=== PATIENT | female | born 1950 | race Caucasian/White ===

== ENCOUNTER 2016-07-22 13:05 | Observation (INO) | payer OTHER ==
[~2016-07-22] VITALS: Ht 160 cm; Wt 121.6 kg
[~2016-07-22 13:05] MED LIST: ASPI-232 PO; ATEN50TA PO; CALC600T9 PO; CHOL1CAP30 PO; MULT-506 PO; OMEP20CA59 PO; OXYBUTYNIN PO; OXYC1TAB3 PO
[2016-07-22] MEDS ORDERED: CLB/200 PO (13:37)
[2016-07-22 14:07] LABS: HEMATOCRIT 38.8 % (37-47); MEAN CORPUSCULAR HEMOGLOBIN 29.3 pg (25-34); MEAN CORPUSCULAR HGB CONC 33.2 g/dl (32-36); MEAN PLATELET VOLUME 10.8 fL (7.4-10.4); PLATELET COUNT 175 K/uL (130-400); RED BLOOD COUNT 4.41 M/uL (4.2-5.4); WHITE BLOOD COUNT 7.44 K/uL (4.8-10.8)
--- NOTE | 2016-07-22 14:09 | DIAGNOSTIC IMAGING REPORT ---
CHEST ONE VIEW PORTABLE CLINICAL HISTORY: Atypical chest pain and shortness of breath COMPARISON STUDY: 01/13/2016 FINDINGS: The heart is the upper limits of normal in size. There is no failure. There is no focal pulmonary consolidation. There are no pleural effusions.[ IMPRESSION: No active disease in the chest. Electronically signed by: Trip Dangelo M.D. 07/22/2016 2:08 PM Dictated Date/Time: 07/22/2016 2:07 PM
[2016-07-22 14:16] LABS: PROTHROMBIN TIME (PATIENT) 10.8 SECONDS (9.0-12.0)
[2016-07-22 14:24] LABS: BUN/CREATININE RATIO 16.3 (10-20); CREATININE 0.91 mg/dl (0.60-1.20); POTASSIUM 4.3 mmol/L (3.5-5.1)
[2016-07-22 14:29] LABS: ALB/GLOB RATIO 1.1 (0.9-2); CKMB/CK RATIO 0.8 (0-3.0)
--- NOTE | 2016-07-22 15:01 | EMERGENCY ROOM VISIT NOTE ---
History First contact with patient: 13:48 Chief Complaint: CARDIAC ASSESSMENT Stated Complaint: CHEST PAIN Nursing Triage Summary: PT HERE WITH EPISODES OF CHEST PAINS AT NIGHT RECENTLY. INCREASED SOB WITH EXERTION. PT STATES HAS HAD A 12 LB WT GAIN RECENTLY. PT HAS VERY SLIGHT PEDAL EDEMA. NO HX OF CARDIAC OR CHF. PT STATES HAS HAD DRY COUGH. GIVEN 2 NTG IN ROUTE WITH RELIEF OF PAIN FROM 5/10 TO 6/10. History of Present Illness The patient is a 66 year old female who presents to the Emergency Room via ambulance from her primary care provider's office for evaluation of shortness of breath and intermittent chest pain. The patient states that she has had a cough and shortness of breath for the past 2 weeks. She states that her symptoms are worse at night. She also has associated chest pain at night which she states feels like a heaviness. She reports that the shortness of breath has been worse with exertion. She also reports a 12 pound weight gain over the past few weeks. The patient denies any history of COPD or heart failure. She does report a history of hypertension. She states that she has a history of a "slight heart attack" but was never seen by a physician for this because she did not have health insurance. She denies any symptoms at this time. She was seen at Dr. Casiano's office and sent here for further evaluation. The patient does report a recent GI illness but denies any other recent illnesses. Review of Systems A complete 10 point review of systems was reviewed with the patient with pertinent positives and negatives as per history of present illness. All else were negative. Past Medical/Surgical History Medical Problems: (1) Chest pain (2) History of coronary artery disease (3) Hypertension (4) Pre-diabetes (5) Shortness of breath on exertion Social History Smoking Status: Never Smoker Current/Historical Medications Scheduled Aspirin (Aspir-81), 81 MG PO QAM Atenolol (Tenormin), 50 MG PO QAM Calcium Carbonate-Vitamin D (Calcium + D), 600 MG PO BID Celecoxib (CeleBREX), 200 MG PO BID Cholecalciferol (Vitamin D3), 400 PO QAM Guaifenesin Ext Rel (Mucinex Ext Rel), 600 MG PO Q12 Multivitamin (Multivitamin), 1 TAB PO QAM Omeprazole (Prilosec), 20 MG PO QAM Scheduled PRN Oxycodone Ir (Roxicodone Ir), 5-10 MG PO Q4H PRN Allergies Coded Allergies: No Known Allergies (Unverified , 11/29/12) PER Beulah GALINDO H&P 2013 Physical Exam Vital Signs Date Time Temp Pulse Resp B/P Pulse Ox O2 Delivery O2 Flow Rate FiO2 07/22/16 16:05 67 20 07/22/16 15:35 58 17 94 07/22/16 15:05 58 16 94 07/22/16 15:02 169/86 07/22/16 14:38 62 20 169/86 94 Room Air 07/22/16 14:35 60 16 93 07/22/16 14:30 169/86 07/22/16 14:05 62 13 92 07/22/16 13:35 59 12 91 07/22/16 13:33 58 07/22/16 13:31 94 Room Air 07/22/16 13:31 94 Room Air 07/22/16 13:20 95 Room Air 07/22/16 13:17 200/93 07/22/16 13:14 36.4 67 22 200/93 95 Room Air Physical Exam VITALS: Vitals are noted on the nurse's note and reviewed by myself. Vital signs stable. GENERAL: This is a 66-year-old female, in no acute distress, nondiaphoretic, well-developed well-nourished. SKIN: Capillary reflex less than 2 seconds. HEENT: Normocephalic. PERRLA. EOMI. Nares patent. Mucous membranes moist. Neck is supple without nuchal rigidity. HEART: Regular rate and rhythm without murmurs gallops or rubs. LUNGS: Clear to auscultation bilaterally without wheezes, rales or rhonchi. No retractions or accessory muscle use. EXTREMITIES: No pedal edema. NEURO: Patient was alert and oriented to person place and time. Medical Decision & Procedures ER Provider Diagnostic Interpretation: CHEST ONE VIEW PORTABLE CLINICAL HISTORY: Atypical chest pain and shortness of breath COMPARISON STUDY: 01/13/2016 FINDINGS: The heart is the upper limits of normal in size. There is no failure. There is no focal pulmonary consolidation. There are no pleural effusions.[ IMPRESSION: No active disease in the chest. Laboratory Results Test 07/22/16 13:55 07/22/16 13:59 Prothrombin Time 10.8 SECONDS (9.0-12.0) Prothromb Time International Ratio 1.0 (0.9-1.1) Activated Partial Thromboplast Time 26.9 SECONDS (21.0-31.0) Partial Thromboplastin Ratio 1.0 Total Bilirubin 0.9 mg/dl (0.2-1) Aspartate Amino Transf (AST/SGOT) 24 U/L (15-37) Alanine Aminotransferase (ALT/SGPT) 37 U/L (12-78) Alkaline Phosphatase 73 U/L (45-117) Pro-B-Type Natriuretic Peptide 393 pg/ml (0-900) Total Protein 7.5 gm/dl (6.4-8.2) Albumin 3.9 gm/dl (3.4-5.0) Globulin 3.6 gm/dl (2.5-4.0) Albumin/Globulin Ratio 1.1 (0.9-2) Bedside Troponin I 0.000 ng/ml (0-0.045) ECG Indication: chest pain Rate (beats per minute): 65 Rhythm: normal sinus Findings: no acute ischemic change, no ectopy Comparison ECG Date: no prior available ED Course The patient was evaluated as above. Labs were drawn and IV access was obtained. Patient was reevaluated and plan was discussed. The patient agrees to admission. Case was discussed with the [facility] hospitalist, Dr. Squires. They agreed to evaluate the patient for admission. Medical Decision Differential diagnosis includes acute coronary syndrome, pulmonary embolism, pneumothorax, pericarditis, myocarditis, endocarditis, anxiety, musculoskeletal pain, GERD, costochondritis, pneumonia, among others. The patient is a 66-year-old female who presents today complaining of intermittent chest pain, cough and shortness of breath. Labs revealed no leukocytosis, anemia or concerning electrolyte abnormalities. Glucose is slightly elevated. Troponin was not elevated. EKG showed a normal sinus rhythm without ischemic changes. The patient does report a previous cardiac event, but I am doubtful that she truly had an MRI as there is no evidence of prior ischemia on her EKG. BNP was not elevated. Chest x-ray showed no evidence of failure or other acute findings. The patient does have a history concerning for chest pain and I do feel that she will benefit from admission for further cardiac testing, especially as she has not had a stress test for 8 years. She is certainly high risk of an obese patient with a history of hypertension and a very strong family history of cardiac disease. The patient was agreeable to this. The [facility], who agreed to evaluate the patient for admission. The patient was independently evaluated by Dr. Jean-Baptiste, ED attending physician, who agreed with my assessment and treatment plan. Impression Primary Impression: Intermittent chest pain Departure Information Prescriptions Guaifenesin Ext Rel (MUCINEX EXT REL) 600 Mg Tabcr 600 MG PO Q12 for 10 Days, #20 TAB Prov: Campos Varela MD 07/23/16 Referrals Asad Casiano M.D. (PCP) Patient Instructions My [facility]
[2016-07-22] MEDS ORDERED: NITROGLYCERIN 0.4 MG SL PER TAB CHARGE SL PRN (16:15)
[2016-07-22] MEDS ORDERED: ACETAMINOPHEN 325 MG TAB PO PRN (16:15)
[2016-07-22] MEDS ORDERED: ALUMINUM/MAGNESIUM/SIMETH (MAALOX MAX) 30 ML UDC PO PRN (16:15)
[2016-07-22] MEDS ORDERED: ONDANSETRON INJ 2 MG/ML 2 ML VIAL IV PRN (16:15)
[2016-07-22] MEDS ORDERED: POLYETHYLENE (MIRALAX) 17 GM PACK PO PRN (16:15)
[2016-07-22] MEDS ORDERED: MAGNESIUM HYDROXIDE SUSP 30 ML UDC PO PRN (16:15)
[2016-07-22] MEDS ORDERED: OXYCODONE HCL IR 5 MG TAB (IMMEDIATE RELEASE) PO PRN (16:30)
[2016-07-22] MEDS ORDERED: IV FLUIDS COMPLETED PRN (16:30)
--- NOTE | 2016-07-22 16:51 | History and Physical ---
History & Physical Date & Time of Service: July 22, 2016 at 16:25 Chief Complaint: Chest Pain Primary Care Physician: Asad Casiano M.D. History of Present Illness Source: patient Patient's a 66-year-old female who presents today with progressive dyspnea on exertion for the past 2 weeks. The past 2 weeks the patient states that she has had URI symptoms along with cough. Last week she had clear mucus coming up, but this is cleared up. She states that she does feel slightly wheezy. She does report that she has been getting dyspneic with exertion. She states that just walking to the bathroom makes her short of breath. She denies exertional chest pain. At nighttime during the past 2 weeks however she does wake up with fits of coughing, and as a result of the coughing, states that she feels a pressure-like pain in her chest. After she is finished coughing the pain subsides. This pain also does not radiate to the chart of the arms. When she is well, the patient does not get chest pain or dyspnea with exertion. Patient does note that 8 years ago she did have an episode where she became lightheaded and had an episode of syncope. Her friend checked her blood pressure and noted that her "bottomed out". The patient was sat upright and states that she regained consciousness, but notes that she chose not to go to the ED/hospital because she did not have insurance at the time. She was later worked up at [facility] in [place], and was told that she had "scarring on the heart". She has had stents placed or CABG. She did have an echocardiogram at that time but that is unavailable to her or us. She notes that this morning she was at her family physician's office. He auscultated her lungs are noted to her that he felt she had congestion at the bases and was given a call an ambulance for her. She states that when he mention this to her she got a sudden feeling of substernal chest pressure, that did not radiate to the jaw or to the arms. She did not describe described as pain. She did not have any palpitations, lightheadedness, dizziness. The patient denies any recent fevers chills or night sweats. Her appetite and intake have been at her baseline. The patient has not had any pleuritic chest pain. She's not had any calf swelling. She has not had any recent long-haul flights or travel. She has not had any recent surgery or periods of prolonged immobility. She does not have a history of deep vein thrombosis or pulmonary embolism. Medical history includes hypertension. She does not have a history of diabetes or hyper cholesterolemia. She states that she used to smoke very occasionally, at most one cigarette every 3 days and this was for a short period of time and, and has not smoked in many decades. She does note a significant family history. Her father had CHF. She has 3 brothers who had MIs at the ages of 47, 52, and 58, all of which due to the MA. She has a brother who had an MA at 58 and survived. She has a sister who had an MA in her 40s. At this time the patient states that she is completing the chest pain-free. She does not any palpitations, lightheadedness, dizziness, shortness of breath, orthopnea, or lower extremity edema. Past Medical/Surgical History Hypertension CAD, no details on nuclear testing and echocardiogram from 8 years ago Rheumatoid arthritis Spinal Stenosis Family History She does note a significant family history. Her father had CHF. She has 3 brothers who had MIs at the ages of 47, 52, and 58, all of which due to the MA. She has a brother who had an MA at 58 and survived. She has a sister who had an MA in her 40s Social History Smoking Status: Former Smoker Smokeless Tobacco Use: No Alcohol Use: none Drug Use: none Marital Status: Housing status: lives with family Occupational Status: retired Immunizations History of Influenza Vaccine: Yes Influenza Vaccine Date: Nov 30, 2012 History of Tetanus Vaccine?: Yes Tetanus Immunization Date: Nov 30, 2012 History of Pneumococcal: Yes Pneumococcal Date: Nov 30, 2012 History of Hepatitis B Vaccine: No Allergies Coded Allergies: No Known Allergies (Unverified , 11/29/12) PER Beulah GALINDO H&P 2013 Home Medications Scheduled Aspirin (Aspir-81), 81 MG PO QAM Atenolol (Tenormin), 50 MG PO QAM Calcium Carbonate-Vitamin D (Calcium + D), 600 MG PO BID Celecoxib (CeleBREX), 200 MG PO BID Cholecalciferol (Vitamin D3), 400 PO QAM Multivitamin (Multivitamin), 1 TAB PO QAM Omeprazole (Prilosec), 20 MG PO QAM Scheduled PRN Oxycodone Ir (Roxicodone Ir), 5-10 MG PO Q4H PRN Review of Systems A 10 point review of systems was negative unless stated above. Physical Exam Vital Signs Date Time Temp Pulse Resp B/P Pulse Ox O2 Delivery O2 Flow Rate FiO2 07/22/16 14:38 62 20 169/86 94 Room Air 07/22/16 13:33 58 07/22/16 13:31 94 Room Air 07/22/16 13:31 94 Room Air 07/22/16 13:20 95 Room Air 07/22/16 13:14 36.4 67 22 200/93 95 Room Air General Appearance: WD/WN, no apparent distress, + obese Head: normocephalic Eyes: normal inspection, EOMI ENT: hearing grossly normal, TMs normal Neck: supple, no adenopathy, no JVD Respiratory/Chest: lungs clear, + pertinent finding (mildly coarse at the bases ; no obvious crackles or wheezing) Cardiovascular: regular rate, rhythm, no gallop, no murmur Abdomen/GI: normal bowel sounds, non tender, soft Back: no CVA tenderness, no muscle spasm Extremities/Musculoskelatal: no calf tenderness, no pedal edema Neurologic/Psych: alert, normal mood/affect, oriented x 3 Skin: normal color, warm/dry, no rash Lymphatic: no adenopathy Diagnostics Laboratory Results Results Past 24 Hours Test 07/22/16 13:55 07/22/16 13:59 Range/Units White Blood Count 7.44 4.8-10.8 K/uL Red Blood Count 4.41 4.2-5.4 M/uL Hemoglobin 12.9 12.0-16.0 g/dL Hematocrit 38.8 37-47 % Mean Corpuscular Volume 88.0 80-100 fL Mean Corpuscular Hemoglobin 29.3 25-34 pg Mean Corpuscular Hemoglobin Concent 33.2 32-36 g/dl RDW Standard Deviation 43.4 36.4-46.3 fL RDW Coefficient of Variation 13.5 11.5-14.5 % Platelet Count 175 130-400 K/uL Mean Platelet Volume 10.8 7.4-10.4 fL Prothrombin Time 10.8 9.0-12.0 SECONDS Prothromb Time International Ratio 1.0 0.9-1.1 Activated Partial Thromboplast Time 26.9 21.0-31.0 SECONDS Partial Thromboplastin Ratio 1.0 Sodium Level 143 136-145 mmol/L Potassium Level 4.3 3.5-5.1 mmol/L Chloride Level 104 98-107 mmol/L Carbon Dioxide Level 33 21-32 mmol/L Anion Gap 6.0 3-11 mmol/L Blood Urea Nitrogen 15 7-18 mg/dl Creatinine 0.91 0.60-1.20 mg/dl Est Creatinine Clear Calc Drug Dose 79.2 ml/min Estimated GFR () 76.7 Estimated GFR (Non- 66.2 BUN/Creatinine Ratio 16.3 10-20 Random Glucose 119 70-99 mg/dl Calcium Level 9.0 8.5-10.1 mg/dl Total Bilirubin 0.9 0.2-1 mg/dl Aspartate Amino Transf (AST/SGOT) 24 15-37 U/L Alanine Aminotransferase (ALT/SGPT) 37 12-78 U/L Alkaline Phosphatase 73 45-117 U/L Total Creatine Kinase 202 26-192 U/L Creatine Kinase MB 1.6 0.5-3.6 ng/ml Creatine Kinase MB Ratio 0.8 0-3.0 Pro-B-Type Natriuretic Peptide 393 0-900 pg/ml Total Protein 7.5 6.4-8.2 gm/dl Albumin 3.9 3.4-5.0 gm/dl Globulin 3.6 2.5-4.0 gm/dl Albumin/Globulin Ratio 1.1 0.9-2 Bedside Troponin I 0.000 0-0.045 ng/ml Diagnostic Radiology CHEST ONE VIEW PORTABLE CLINICAL HISTORY: Atypical chest pain and shortness of breath COMPARISON STUDY: 01/13/2016 FINDINGS: The heart is the upper limits of normal in size. There is no failure. There is no focal pulmonary consolidation. There are no pleural effusions.[ IMPRESSION: No active disease in the chest. Electronically signed by: Trip Dangelo M.D. 07/22/2016 2:08 PM Dictated Date/Time: 07/22/2016 2:07 PM CXR normal EKG Normal sinus rhythm Normal ECG No previous ECGs available Impression Assessment and Plan 66-year-old female presenting with nocturnal cough chest pressure on a background of 2 weeks of exertional dyspnea. Based on the characteristics of her chest discomfort this does not seem like classic angina. However, he causes of her morbidities and age she would have an intermediate pretest probability for coronary artery disease. There is no confirmed diagnosis of MA but based on history it seems as though she may already have known coronary disease. However we do not have the records. At this time I suspect this is more likely URI/bronchitis, based on her URI symptoms for the past 1-2 weeks. However based on risk factors, she should be admitted for further workup. Our plan for her is as follows: Chest Pain - EKG in the emergency department did not show any acute ST or T-wave changes; no previous EKG for comparison - Troponin 1 negative; these will be trended every 6 hours 3 - Based on intermediate pretest probability the patient would benefit from having stress testing done. At this time I do not think that she would be able to tolerate a treadmill echo; she'll be ordered a dobutamine echo for tomorrow - Nitroglycerin for chest pain - EKG with chest pain and in the morning Exertional shortness of breath and Nocturnal cough Multiple differentials including URI/bronchitis pneumonia, DAVID, CHF - Suspect most likely URI/bronchitis - Chest x-ray grossly unremarkable for acute process - Mucinex 600 twice a day - Unlikely pneumonia; patient is not febrile, no loose leukocytosis, no hypoxia - Unlikely CHF: No clinical evidence of fluid overload, proBNP negative, No obvious congestion on chest x-ray. Follow daily I's and O's and daily weight. Echocardiogram with dobutamine - Patient is obese and at risk for DAVID; I will also add nocturnal pulse oximetry - Continue PPI for possible nocturnal reflux History of coronary artery disease - Continue ASA - Patient is not on a statin at this time though if she does have coronary disease she would benefit from starting a statin for plaque stabilization Hypertension - Continue atenolol - Will also add a when necessary labetalol Rheumatoid arthritis - Patient takes Enbrel at home, was due for dose today - We'll contact pharmacy to ensure she can get dose of Enbrel - Continue Celebrex and oxycodone for pain GERD - Patient on omeprazole at home; replace per pharmacy DVT prophylaxis - SCD - Lovenox 40 every morning Disposition - Telemetry for cardiac monitoring - Expect discharge home when ready; can order PT and OT as indicated Level of Care Med/Surg Resuscitation Status FULL RESUSCITATION VTE Prophylaxis VTE Risk Assessment Done? Y/N: Yes Risk Level: Moderate Given or contraindicated: Enoxaparin (Lovenox)SQ Reviewed: Pt Seen/Exam by Me History Pt is having some anxiety about being admitted, but no chest pain now. No SOB. Has been eating without issue. Tells me that she gained a large amount of weight when she was on prednisone for RA. She has not been able to lose it despite no longer being on prednisone. Agree with HPI/ROS as noted. General Appearance: no apparent distress, obese Respiratory: normal breath sounds, no respiratory distress Cardiovascular: normal peripheral pulses, regular rate, rhythm Gastrointestinal: non tender, soft Extremities: non-tender, no pedal edema Neurologic/Psychiatric: alert, normal mood/affect Skin Characteristics: normal color, warm/dry Assessment/Plan Agree with plan as outlined above CP r/o given pt has multiple risk factors Work up is neg thus far Possible URI
[2016-07-22] MEDS ORDERED: HydrALAZINE HCL 20 MG/ML VIAL IV. PRN (17:15)
--- NOTE | 2016-07-22 17:16 | EMERGENCY ROOM VISIT NOTE ---
ED Visit Note First contact with patient: 13:48 The patient was seen and examined with Nolvia Chauhan PA-C. I agree with the history, physical and findings. Please see the note for disposition and details.
[2016-07-22 17:28] VITALS: O2SAT 96
[2016-07-22 18:14] VITALS: BP 190/83; PULSE 69; TEMP 36.6; O2SAT 93
[2016-07-22 18:23] VITALS: Ht 160 cm; Wt 121.6 kg
[2016-07-22] MEDS ORDERED: PNEUMOCOCCAL ADMINISTRATION CHARGE ONE (19:00)
[2016-07-22] MEDS ORDERED: PNEUMOCOCCAL POLYSACCHARIDES 25 MCG/0.5 ML VIAL/SYR IM. ONE (19:00)
[2016-07-22 19:28] VITALS: BP 149/63; PULSE 70; TEMP 36.5; O2SAT 92
[2016-07-22] MEDS ORDERED: ENOXAPARIN 40 MG/0.4 ML SYR SC SCH (20:00)
[2016-07-22] MEDS: GUAIFENESIN 600 MG TABCR PO SCH (20:45)
[2016-07-22] MEDS: CALCIUM 600MG + VIT D 400 IU TAB PO SCH (20:45)
[2016-07-22] MEDS: CeleBREX 200 MG CAP PO SCH (20:46)
[2016-07-22 22:33] LABS: CKMB/CK RATIO 0.7 (0-3.0)
[2016-07-22 23:35] VITALS: BP 150/92; PULSE 61; TEMP 36.7; O2SAT 93
[2016-07-23 00:08] LABS: MAGNESIUM 1.9 mg/dl (1.8-2.4)
--- NOTE | 2016-07-23 00:46 | Progress Note ---
Progress Note Date of Service July 23, 2016. Progress Note multiple episodes of bradycardia and what looks like a dropped beat, asymptomatic and during sleep, increasing frequency throughout the night, atenolol held, transcut pacers placed on chest and atropine at bedside incase patient is hemodynamically unstable, [facility] consult
[2016-07-23 01:37] VITALS: BP 156/76; PULSE 64; TEMP 36.8; O2SAT 93
[2016-07-23] MEDS ORDERED: ASPIRIN 81 MG CHEW PO STA (03:54)
[2016-07-23 04:08] VITALS: BP 159/83; PULSE 68; TEMP 36.9; O2SAT 93
[2016-07-23 04:39] LABS: HEMATOCRIT 37.7 % (37-47); MEAN CELL VOLUME 87.3 fL (80-100); MEAN CORPUSCULAR HEMOGLOBIN 29.4 pg (25-34); MEAN CORPUSCULAR HGB CONC 33.7 g/dl (32-36); MEAN PLATELET VOLUME 10.4 fL (7.4-10.4); PLATELET COUNT 164 K/uL (130-400); RED BLOOD COUNT 4.32 M/uL (4.2-5.4); WHITE BLOOD COUNT 6.71 K/uL (4.8-10.8)
[2016-07-23 04:50] LABS: BLOOD UREA NITROGEN 15 mg/dl (7-18); BUN/CREATININE RATIO 16.2 (10-20); CALCIUM 9.1 mg/dl (8.5-10.1); CARBON DIOXIDE 33 mmol/L (21-32); CHLORIDE 104 mmol/L (98-107); CREATININE 0.91 mg/dl (0.60-1.20); GLUCOSE 137 mg/dl (70-99); SODIUM 142 mmol/L (136-145)
[2016-07-23 04:55] LABS: CHOLESTEROL 147 mg/dl (0-200); CHOLESTEROL/HDL RATIO 2.9; CKMB/CK RATIO 0.5 (0-3.0); HDL CHOLESTEROL 51 mg/dl; LDL CHOLESTEROL CALCULATED 66 mg/dl; TRIGLYCERIDES 148 mg/dl (0-150); VERY LOW DENSITY LIPOPROT CALC 30 mg/dl
[2016-07-23 06:39] LABS: ESTIMATED AVERAGE GLUCOSE 134 mg/dl; HA1C FLAG Normal (Normal)
[2016-07-23 07:15] VITALS: BP_SYST 156; BP_SYST 185; BP_DIAS 83; BP_DIAS 92; PULSE 63; TEMP 37.1; O2SAT 92
[2016-07-23] MEDS: GUAIFENESIN 600 MG TABCR PO SCH (07:54)
[2016-07-23] MEDS: CeleBREX 200 MG CAP PO SCH (07:54)
[2016-07-23] MEDS: CALCIUM 600MG + VIT D 400 IU TAB PO SCH (07:54)
[2016-07-23] MEDS ORDERED: ATROPINE SULFATE 0.1 MG/ML 5ML SYR ONE (08:34)
[2016-07-23] MEDS ORDERED: METOPROLOL TARTRATE 1 MG/ML VIAL ONE ×2 (08:34→10:01)
[2016-07-23] MEDS ORDERED: DOBUTamine HCL 12.5 MG/ML 20 ML VIAL ONE (08:34)
[2016-07-23] MEDS ORDERED: MULTIVITAMIN TAB PO SCH (09:00)
[2016-07-23] MEDS ORDERED: PANTOprazole SOD 40 MG TAB PO SCH (09:00)
[2016-07-23] MEDS ORDERED: ASPIRIN 81 MG ECTAB PO SCH (09:00)
[2016-07-23] MEDS ORDERED: CHOLECALCIFEROL 400 INTER.UNIT TAB PO SCH (09:00)
[2016-07-23] MEDS ORDERED: GFNSR600 PO (10:21)
--- NOTE | 2016-07-23 10:33 | Discharge Instructions ---
Discharge Instructions Date of Service July 23, 2016. Admission Reason for Admission: Chest Pain evaluation for myocardial infarction Discharge Discharge Diagnosis / Problem: Bronchitis Discharge Goals Goal(s): Decrease discomfort, Improve function, Diagnostic testing Activity Recommendations Activity Limitations: resume your previous activity Lifting Limitations: gradually increase as tolerated Exercise/Sports Limitations: gradually increase as tolerated May Resume Sexual Activity: when tolerated Shower/Bathe: no limitations Driving or Machine Use: no limitations . Instructions / Follow-Up Instructions / Follow-Up You came to the ED for evaluation for shortness breath during the day with nighttime coughing and chest tightness. You do have risk factors for heart disease including hypertension and a family history of heart attacks in multiple siblings. As such we felt it would be prudent to admit you to evaluate you for coronary disease. We did a stress echocardiogram which was normal and did not show and evidence heart dysfunction. We checks serial cardiac enzymes on you which were all normal which is encouraging in that it does not show evidence of heart damage. Your EKG was reviewed multiple times and it was normal throughout your admission. All evidence points to bronchitis as your diagnosis. Most likely the cause is viral so antibiotics do not help. We will give you a prescription for Mucinex to help loosen any sputum that you are trying to clear with coughing. Of note while you were admitted, there were several episodes where your heart would slow down for 2-3 seconds. You mentioned that you were having chest discomfort and coughing overnight that lasted 15 minutes. However, there were no EKG changes during this period and the timing of your symptoms and pauses don 't coincide. Therefore your symptoms are more likely related to the bronchitis rather than these short pauses. As such you do not require any intervention for that at this time. For the future, it will be important for you to manage your risk factors for heart disease. Continue Atenolol for your hypertension. Your HbA1c is elevated at 6.3 suggesting you are pre-diabetic so based on discussion with your family doctor, you should discuss with them starting medications to keep your blood sugars under control or whether to continue surveillance in the comings months. Your cholesterol panel looks good and based on your EKG and echocardiogram, it is unlikely you had a heart attack in the past. As such your family physician should periodically monitor your cholesterol levels to make sure you don't need to be on a cholesterol tablet. Your blood pressure is slightly on the higher side so you will want to follow- up with your family doctor this week and re-check it. If it is still high, he may decide to change your blood pressure medications. If your symptoms fail to improve, acutely worsen, please seek medical attention immediately by either calling your primary care provider or going to your nearest emergency department. Otherwise, please see your primary care provider in 3-5 days to ensure that your symptoms continue to improve. It was a pleasure to be involved in your care and we wish you all the best. Current Hospital Diet Patient's current hospital diet: AHA Diet (Heart Healthy) Discharge Diet Recommended Diet: AHA Diet (Heart Healthy) Pending Studies Studies pending at discharge: no Laboratory Results Hemoglobin A1c Test 07/23/16 04:10 Range/Units Estimated Average Glucose 134 mg/dl Hemoglobin A1c 6.3 H 4.5-5.6 % Lipid Panel Test 07/23/16 04:10 Range/Units Triglycerides Level 148 0-150 mg/dl Cholesterol Level 147 0-200 mg/dl HDL Cholesterol 51 mg/dl Cholesterol/HDL Ratio 2.9 LDL Cholesterol, Calculated 66 mg/dl Medical Emergencies . Who to Call and When: Medical Emergencies: If at any time you feel your situation is an emergency, please call 911 immediately. . Non-Emergent Contact Non-Emergency issues call your: Primary Care Provider . Past History Medical & Surgical History: (1) Hypertension (2) Family history of coronary artery disease (3) Pre-diabetes (4) History of coronary artery disease . "Provider Documentation" section prepared by Campos Varela. . VTE Core Measure Inpt VTE Proph given/why not?: Enoxaparin (Lovenox)SQ, SCD's
--- NOTE | 2016-07-23 11:24 | CARDIOLOGY CONSULTATION ---
DATE OF CONSULTATION: 07/23/2016 DATE OF CONSULTATION: 07/23/2016. REFERRING PHYSICIAN: Campos Varela M.D. CHIEF COMPLAINT: Chest pain. HISTORY OF PRESENT ILLNESS: Kari Venegas is a 66-year-old woman with a reported history of cardiac disease having suffered a myocardial infarction remotely. She presented to her physician's office yesterday with complaints of persistent coughing at nighttime and intermittent chest discomfort. The patient states that she has had an element of coughing for several weeks. This is most noticeable at nighttime. The cough itself is productive only of some scant sputum and is associated with some mild shortness of breath on occasion. The patient did not report significant breathing difficulty. She states that her reports that she is breathing more heavily with ambulation at this time. She also awakens at nighttime with episodes of chest discomfort. This was described as a pressure or burning sensation in the precordium that is moderately severe in nature. It does not involve radiation to the arms or neck. There is no associated dyspnea. This does not appear to happen exclusively after coughing episodes. The episodes themselves can last 15-30 minutes and are relieved without any particular intervention. The patient often will get up and walk around but the chest pain itself simply resolves over time. Commonly she will return to sleep and awaken again with a second episode. She does not report similar episodes while awake, although her medical records suggest that she was having some symptoms at the time of her doctor's visit yesterday. In general, the patient is fairly sedentary but is able to perform routine activities with minimal limitation or symptom. Once again she does not report exertional chest discomfort and while she is not aware of significant dyspnea with activity this has been reported by her . She has had a significant weight gain over the past year that she attributes to use of steroids. She rarely notices swelling in her lower extremities. She has been ill recently with what she describes as a "bronchitis" involving the aforementioned coughing and mild dyspnea. At the time of the interview, the patient claims to be feeling well. She denies significant breathing difficulty at this time. She has no significant chest discomfort. PAST MEDICAL HISTORY: Significant for: 1. Reported myocardial infarction. This involved an episode of left arm discomfort approximately 8 years ago. Evaluation at that time did not involve any type of coronary intervention. The patient underwent outpatient stress testing likely nuclear study 6 months subsequent to that episode and was told that there was some mild "scarring". Once again no intervention or other therapy was performed for this reported infarction. 2. Esophagitis. 3. Degenerative joint disease. 4. Rheumatoid arthritis. 5. Hyperlipidemia. 6. Hypertension. 7. Psoriasis. PAST SURGICAL HISTORY: Includes: 1. Right total hip replacement. 2. Back surgery. 3. Tubal ligation. FAMILY HISTORY: Not significant for premature coronary disease. SOCIAL HISTORY: The patient is a lifelong nonsmoker. Denies significant alcohol use. Currently and lives locally. OUTPATIENT MEDICATIONS: Included aspirin, atenolol, Celebrex, Enbrel, omeprazole, prednisone, ProAir and a variety of supplements. MEDICAL ALLERGIES: No known medical allergies. REVIEW OF SYSTEMS: A complete 10-system review of systems was performed and pertinent positives are noted in the history of present illness, the remainder being negative. The patient states she has not had any recurrence of the left arm discomfort which prompted her initial cardiac evaluation several years ago. Generally speaking, she is aware of only brief and fleeting palpitations, no sustained episodes. She has no symptoms of dizziness or lightheadedness. She did suffer 1 syncopal episode in the setting of her "AR" several years ago, but none since. PHYSICAL EXAMINATION: GENERAL: The patient does not appear in acute distress. She is a pleasant individual who is alert and oriented. Mood and affect appeared normal. She answered all questions appropriately. She was obese. VITAL SIGNS: Include blood pressure 156/83 with a pulse of 63. HEAD, EYES, EARS, NOSE, AND THROAT: Her sclerae are anicteric. Pupils equal, reactive to light and accommodation. Extraocular movements were intact. Palpation of submandibular region did not reveal any significant lymphadenopathy. The carotids are palpable bilaterally. I do not appreciate any bruits on auscultation. I did not appreciate any jugular venous distention, although the neck tissues were notably redundant. There was no evidence of thyromegaly. LUNGS: Auscultation of both lung farfan revealed the apices to be clear. I do not appreciate any rales, wheezes or rhonchi. She appeared to have normal respiratory effort without use of accessory muscles. CARDIAC EXAMINATION: Revealed her to be in a regular rhythm. S1 and S2 appeared to be normal. I did not appreciate any murmurs on exam. Heart sounds are somewhat distant however. PMI was not markedly displaced on palpation. ABDOMEN: Obese but nontender. EXTREMITIES: Evaluation of both wrists revealed radial pulses that were equal in intensity. There is no evidence of cyanosis or clubbing. Evaluation of lower extremities did not reveal any significant peripheral edema. SKIN: I do not appreciate any rashes on examination today. LABORATORY STUDIES: Obtained at [facility] include a white cell count of 6.7, hemoglobin of 12.7 and a platelet count of 164. Sodium is 142, potassium is 4.0, BUN was 15, creatinine was 0.9. Serial troponins were all less than detectable limit. A total CK was normal. The patient had a single view chest x-ray obtained at the time of admission which did not reveal any active cardiopulmonary disease. Serial electrocardiograms were also obtained. This revealed evidence of a normal sinus rhythm, normal EKG. 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 There is no evidence of heart block. ASSESSMENT AND PLAN: 1. Chest pain: The patient has had fairly frequent and somewhat prolonged episodes of chest discomfort, the character of which is concerning for coronary ischemia. These episodes however occur at rest. She had no similar symptoms with exertion. Despite repeated and somewhat prolonged episodes, she has not had any elevation in cardiac biomarkers. She gave a reported history of myocardial infarction; however, this does not sound like a true infarct and was likely that her perfusion study was essentially normal. She will be evaluated with echocardiography today and given her symptoms of chest discomfort, provocative testing in the form of a dobutamine echocardiogram has also been ordered. I think if that study is unremarkable the patient could be discharged home and alternate etiologies for chest discomfort could be entertained including esophageal spasm or esophagitis given her history of such trouble. 2. Dyspnea: The patient does not report subjective dyspnea; however, her thinks that she is more short of breath. Her N-terminal ProBNP was normal at the time of admission. She is markedly overweight and relatively sedentary, which could contribute to her dyspnea. She may also have some pulmonary process, especially in the setting of frequent coughing. Once again we will evaluate her left ventricular function with echocardiography today and make additional recommendations based on that result. 3. Coronary artery disease: This is presumed based on her history; however, does not sound like any intervention was never performed and her perfusion study as described suggests a fairly normal result. Her EKG does not suggest an old infarct and we will review her echocardiogram today to see if there is any evidence of old infarcts or wall motion abnormalities. At this point, I am not convinced she has a history of known coronary disease or infarct. Nonetheless, aggressive measures for primary prevention should be continued to include daily aspirin, control of her blood pressure and lipids. MARYK
[2016-07-23 11:35] LABS: CKMB/CK RATIO 0.7 (0-3.0)
[2016-07-23 12:07] VITALS: BP 155/84; PULSE 95; TEMP 36.2; O2SAT 91
[2016-07-23 12:11] VITALS: BP 155/84; PULSE 95; TEMP 36.2; O2SAT 91
--- NOTE | 2016-07-23 13:53 | Discharge Summary ---
Discharge Summary Date of Service July 23, 2016. (Campos Varela MD) Discharge Summary Admission Date: July 22, 2016 at 16:23 Discharge Date: July 23, 2016 Discharge Disposition: Home Principal Diagnosis: Chest pain Problems/Secondary Diagnoses: Bronchitis Immunizations: Have You Had Influenza Vaccine: Yes Influenza Vaccine Date: Nov 30, 2012 History of Tetanus Vaccine?: Yes Tetanus Immunization Date: Nov 30, 2012 History of Pneumococcal: Yes Pneumococcal Date: Nov 30, 2012 History of Hepatitis B Vaccine: No Consultations: Cardiology (Campos Varela MD) Medication Reconciliation New Medications: Guaifenesin Ext Rel (Mucinex Ext Rel) 600 Mg Tabcr 600 MG PO Q12 for 10 Days, #20 TAB Continued Medications: Aspirin (Aspir-81) 81 Mg Tab 81 MG PO QAM Atenolol (Tenormin) 50 Mg Tab 50 MG PO QAM, TAB Calcium Carbonate-Vitamin D (Calcium + D) 1 Tab Tab 600 MG PO BID Celecoxib (CeleBREX) 200 Mg Cap 200 MG PO BID Cholecalciferol (Vitamin D3) 400 Unit Cap 400 PO QAM Multivitamin (Multivitamin) Tab 1 TAB PO QAM, TAB Omeprazole (Prilosec) 20 Mg Capcr 20 MG PO QAM, CAP Oxycodone Ir (Roxicodone Ir) 5 Mg Tab 5-10 MG PO Q4H PRN, #90 Discharge Exam A 10 point review of systems was negative unless stated in the hospital course Physical Exam: General Appearance: WD/WN, no apparent distress, + obese Eyes: normal inspection, EOMI ENT: hearing grossly normal, pharynx normal Neck: supple, no adenopathy, no JVD Respiratory/Chest: lungs clear, no respiratory distress Cardiovascular: regular rate, rhythm, no gallop, no murmur Abdomen / GI: normal bowel sounds, non tender, soft Extremities: no calf tenderness, no pedal edema Neurologic/Psychiatric: alert, normal mood/affect, oriented x 3 Skin: normal color, warm/dry, no rash Lymphatic: no adenopathy (Campos Varela MD) Review of Systems: Constitutional: No fever Respiratory: + cough (with minimal phlegm), No shortness of breath Cardiovascular: No chest pain Abdomen: No pain Physical Exam: General Appearance: no apparent distress Respiratory/Chest: lungs clear, no respiratory distress Cardiovascular: regular rate, rhythm Neurologic/Psychiatric: alert, oriented x 3 Skin: warm/dry (Renetta Landin M.D.) Hospital Course 66-year-old female presenting with nocturnal cough chest pressure on a background of 2 weeks of exertional dyspnea. Admitted for chest pain rule primarily due to multitude of cardiac risk factors and reported history of previous VT. Chest Pain - EKG in ED noted NSR without ST or T wave changes - Serial cardiac enzymes negative x 3 - Normal Dobutamine echocardiogram, report noted above Exertional shortness of breath and Nocturnal cough - Report URI symptoms in days preceding Troponins negative, no EKG changes Negative ProBNP Negative chest x-ray Hx of reflux may also be contributor; patient on PPI at home - Presentation most consistent with viral URI with Bronchitis - Discharged with Mucinex - Possible component of DAVID given habitus; would recommend ambulatory sleep study to be ordered by PCP Asymptomatic Sinus Pauses Overnight - Noted overnight during sleep; max duration 3 seconds; happened total of 4 times - Patient noted overnight to have episodes of cough and chest pain, but this lasted 15 minutes and did not coincide with pauses - Impression is that symptoms were related to bronchitis and pauses were in fact asymptomatic - Cardiology consulted; no intervention indicated given that patient was asymptomatic and had normal stress echocardiogram Possible History of coronary artery disease - Continue ASA - No records were available to us confirming the diagnosis - If can be confirmed, patient should be started on statin therapy for secondary management Hypertension - Continued atenolol, no changes - BP > 150 on admission, had PRN Hydralazine - Recommend follow-up BP check with PCP to determine if med adjustments are required; no changes made at discharge Pre-Diabetes - HbA1c 6.3 - To be follow-up by PCP to determine if pharmacological glycemic management is indicated Rheumatoid arthritis - Patient takes Enbrel at home - No Enbrel in hospital - No changes, patient can resume Enbrel at discharge GERD - Resumed home PPI at discharge DVT prophylaxis - SCD - Lovenox 40 every morning Disposition - Discharge home; patient was discharged within 24 hours - Follow-up with PCP in 1 week - No pending labs or studies at this time Total Time Spent: Less than 30 minutes This includes examination of the patient, discharge planning, medication reconciliation, and communication with other providers. (Campos Varela MD) I have reviewed the medical record and performed a history and physical examination of this patient today. I have discussed the case with Dr. Varela. The above note reflects my findings, conclusions, and recommendations. Total Time Spent: Greater than 30 minutes (38) (Renetta Landin M.D.) Discharge Instructions Please refer to the electronic Patient Visit Report (Discharge Instructions) for additional information. (Campos Varela MD) Follow-Up PCP in 1 week (Campos Varela MD) Additional Copies To Asad Casiano M.D.
--- NOTE | 2016-07-23 17:05 | DOBUTAMINE ECHO ---
*NOTICE TO RECEIVING CONSTITUTION PARTY AGENCY This information is strictly Confidential and protected under [place] law. [place] law prohibits you from making any further disclosure of this information unless further disclosure is expressly permitted by the written consent of the person to whom it pertains or is authorized by law. A general authorization for the release of medical or other information is not sufficient for this purpose. Hospital accepts no responsibility if the information is made available to any other person, INCLUDING THE PATIENT. Interpretation Summary * Name: OPAL JOHNSON Study Date: 07/23/2016 08:18 AM BP: 157/76 mmHg * Patient Location: [facility]\S\N281\S\1 HR: 71 * : 1950 (M/d/yyyy) Gender: Female Height: 62 in * Age: 66 yrs Ethnicity: CA Weight: 275 lb * Ordering Physician: Campos Varela * Performed By: Francia Anderson * * Reason For Study: DYSPENA, HX OF IL * BSA: 2.2 m2 * -- Conclusions -- * Negative dobutamine stress echocardiogram for myocardial ischemia at >100% maximum predicted heart rate. * No chest pain. * No ECG changes. * Baseline echocardiogram notes normal left ventricular systolic function and no significant valvular pathology. Procedure Details * DOBUTAMINE ECHO, CPT#[id number] * ECHO DOPPLER, CPT #[id number] * ECHO COLOR FLOW, CPT #[id number] * The study was technically difficult with many images being suboptimal in quality. * A contrast injection of Definity was performed to improve assessment of LV function. * Contrast was injected into an intravenous site in the right arm. * One vial of Definity ultrasound contrast was diluted in normal saline to a total volume of 10 ml. A total of '8' ml of solution was administered during imaging. * Lot # [id number] of Definity utilized for procedure. * Expiration date 08/10. * The attending nurse who injected the contrast agent was MARLON COX RN. Left Ventricle * The left ventricle is normal in size. * There is borderline concentric left ventricular hypertrophy. * Ejection Fraction = 50-55%. * Left ventricular systolic function is normal. * Resting wall motion: Normal. Stress wall motion: Appropriate increase in Left ventricular systolic function and decrease in cavity size. No stress induced segmental wall motion abnormalities. Right Ventricle * The right ventricle is not well visualized. * The right ventricular systolic function is normal as assessed by tricuspid annular plane systolic excursion (TAPSE) (normal >1.5 cm). Atria * The left atrium is mildly dilated. * Right atrial size is normal. * There is no evidence of atrial septal defect, but resolution does not allow assessment for a patent foramen ovale. Mitral Valve * The mitral valve is grossly normal. * There is no mitral valve stenosis. * Significant mitral regurgitation is absent. Tricuspid Valve * The tricuspid valve is not well visualized, but is grossly normal. * There is no tricuspid stenosis. * Significant tricuspid regurgitation is absent. Aortic Valve * The aortic valve is not well visualized. * The aortic valve opens well. * No hemodynamically significant valvular aortic stenosis. * There is no significant aortic regurgitation. Pulmonic Valve * The pulmonary valve is not well seen, but the Doppler examination is normal without significant regurgitation or stenosis. Great Vessels * The aortic root is normal size. * The pulmonary is not well visualized. Pericardium * There is no pericardial effusion. Stress Parameters * Normal baseline electrocardiogram. * Stress ECG: No ST changes. No arrhythmias. * The stress portion of this study was personally supervised by the undersigned interpreting physician. * Rest heart rate was '71' BPM. * Rest blood pressure was '157/76' * Maximum heart rate achieved was 164 bpm. * Maximum heart rate was 105 % of maximum age-predicted heart rate. * Maximum blood pressure was '182/55' * Maximum Dobutamine infusion rate was '50' mcg/kg/min. * A total of 0.5 mg of intravenous Atropine was used to supplement Dobutamine for heart rate response. * Dobutamine infusion was terminated due to achieving target heart rate * A total of 15 mg of IV Metoprolol was administered to reverse Dobutamine-induced tachycardia. * The patient did not exhibit any symptoms during drug infusion. * Normal blood pressure response to exercise. MMode 2D Measurements and Calculations IVSd 0.79 cm IVSs 1.4 cm LVIDd 6.1 cm LVIDs 4.5 cm LVPWd 0.94 cm LVPWs 1.6 cm IVS/LVPW 0.85 FS 25.2 % EDV(Teich) 185.2 ml ESV(Teich) 94.6 ml EF(Teich) 49.0 % EDV(cubed) 224.3 ml ESV(cubed) 93.8 ml EF(cubed) 58.2 % % IVS thick 70.0 % % LVPW thick 66.4 % LV mass(C)d 209.8 grams LV mass(C)dI 95.9 grams/m\S\2 LV mass(C)s 267.0 grams LV mass(C)sI 122.0 grams/m\S\2 SV(Teich) 90.7 ml SI(Teich) 41.4 ml/m\S\2 SV(cubed) 130.5 ml SI(cubed) 59.6 ml/m\S\2 ACS 1.4 cm LA dimension 4.7 cm asc Aorta Diam 2.6 cm LVOT diam 1.7 cm LVOT area 2.2 cm\S\2 Doppler Measurements and Calculations MV E max jumana 69.5 cm/sec MV A max jumana 86.4 cm/sec MV E/A 0.80 MV dec time 0.21 sec Ao V2 max 160.5 cm/sec Ao max PG 10.3 mmHg Ao max PG (full) 4.8 mmHg GISSEL(V,A) 1.6 cm\S\2 GISSEL(V,D) 1.6 cm\S\2 LV V1 max PG 5.5 mmHg LV V1 max 117.5 cm/sec PA V2 max 65.8 cm/sec PA max PG 1.7 mmHg TR max jumana 281.3 cm/sec
== END 2016-07-23 13:38 | disposition home or self-care (01) ==
LOC: ENRESERVDT → ENRESERVTM → EDBD 13:05 → C.EDA 13:06 → C.MED 16:23
PROVIDERS: ADMIT Student in an Organized Health Care Education/Training Program; ATTEND Family Medicine
DX: J40 Bronchitis, not specified as acute or chronic (principal); R06.02 Shortness of breath; I10 Essential (primary) hypertension; R73.03 Prediabetes; I25.10 Atherosclerotic heart disease of native coronary artery without angina pectoris; M06.9 Rheumatoid arthritis, unspecified; M48.00 Spinal stenosis, site unspecified; Z79.899 Other long term (current) drug therapy; K21.0 Gastro-esophageal reflux disease with esophagitis; E78.5 Hyperlipidemia, unspecified; L40.9 Psoriasis, unspecified; I25.2 Old myocardial infarction; Z79.82 Long term (current) use of aspirin; Z96.641 Presence of right artificial hip joint; Z79.52 Long term (current) use of systemic steroids; Z87.891 Personal history of nicotine dependence; Z82.49 Family history of ischemic heart disease and other diseases of the circulatory system

== ENCOUNTER → 2016-09-05 | Outpatient (CLI) | payer OTHER ==
[~2016-09-05] MED LIST changes: +CLB/200 PO; +GFNSR600 PO; -OXYBUTYNIN PO
[2016-09-05 18:01] LABS: BLOOD UREA NITROGEN 15 mg/dl (7-18); BUN/CREATININE RATIO 15.4 (10-20); CALCIUM 9.7 mg/dl (8.5-10.1); CARBON DIOXIDE 33 mmol/L (21-32); CHLORIDE 101 mmol/L (98-107); CREATININE 0.98 mg/dl (0.60-1.20); GLUCOSE 105 mg/dl (70-99); MAGNESIUM 1.8 mg/dl (1.8-2.4); POTASSIUM 4.3 mmol/L (3.5-5.1); SODIUM 140 mmol/L (136-145)
== END | disposition home or self-care (01) ==
LOC: C.LABMFLN 12:26
PROVIDERS: ATTEND Family Medicine
DX: I10 Essential (primary) hypertension (principal)

== ENCOUNTER → 2016-09-06 | Outpatient (CLI) | payer OTHER | END | disposition home or self-care (01) | LOC: C.LABSPEC 13:34 | PROVIDERS: ATTEND Family Medicine | DX: Z12.11 Encounter for screening for malignant neoplasm of colon (principal) ==

== ENCOUNTER → 2017-03-18 | Outpatient (CLI) | payer OTHER ==
[2017-03-18 12:40] LABS: HEMATOCRIT 40.1 % (37-47); HEMOGLOBIN 13.6 g/dL (12.0-16.0); MEAN CELL VOLUME 87.4 fL (80-100); MEAN CORPUSCULAR HEMOGLOBIN 29.6 pg (25-34); MEAN CORPUSCULAR HGB CONC 33.9 g/dl (32-36); MEAN PLATELET VOLUME 11.2 fL (7.4-10.4); PLATELET COUNT 196 K/uL (130-400); RED CELL DISTRIBUTION WIDTH CV 14.1 % (11.5-14.5); RED CELL DISTRIBUTION WIDTH SD 44.8 fL (36.4-46.3); WHITE BLOOD COUNT 7.08 K/uL (4.8-10.8)
[2017-03-18 13:08] LABS: BASO % 1.1 %; BASO ABS # 0.08 K/uL (0-0.2); EOS % 3.1 %; EOS ABS # 0.22 K/uL (0-0.5); IG# 0.04 K/uL (0.00-0.02); LYMPH % 32.8 %; LYMPH ABS # 2.32 K/uL (1.2-3.4); MONO % 8.8 %; MONO ABS # 0.62 K/uL (0.11-0.59); NEUT % 53.6 %
[2017-03-18 14:05] LABS: ALT/SGPT 37 U/L (12-78); AST/SGOT 29 U/L (15-37); BLOOD UREA NITROGEN 14 mg/dl (7-18); CALCIUM 9.2 mg/dl (8.5-10.1); CARBON DIOXIDE 33 mmol/L (21-32); CHOLESTEROL 135 mg/dl (0-200); CREATININE 0.95 mg/dl (0.60-1.20); GLUCOSE 134 mg/dl (70-99); POTASSIUM 3.4 mmol/L (3.5-5.1); SODIUM 134 mmol/L (136-145)
[2017-03-18 14:07] LABS: LDL CHOLESTEROL CALCULATED 75 mg/dl
== END | disposition home or self-care (01) ==
LOC: C.LABMFLN 09:20
PROVIDERS: ATTEND Family Medicine
DX: I10 Essential (primary) hypertension (principal); E78.5 Hyperlipidemia, unspecified; M06.9 Rheumatoid arthritis, unspecified

== ENCOUNTER → 2017-05-21 | Outpatient (CLI) | payer OTHER ==
[2017-05-21 14:05] LABS: POTASSIUM 4.1 mmol/L (3.5-5.1)
== END | disposition home or self-care (01) ==
LOC: C.LABMFLN 09:31
PROVIDERS: ATTEND Family Medicine
DX: R73.09 Other abnormal glucose (principal)

== ENCOUNTER → 2017-05-26 | Outpatient (CLI) | payer OTHER ==
[2017-05-27 06:14] LABS: HEMOGLOBIN A1C 7.1 % (4.5-5.6)
== END | disposition home or self-care (01) ==
LOC: C.LABMFLN 10:14
PROVIDERS: ATTEND Family Medicine
DX: R73.09 Other abnormal glucose (principal)

== ENCOUNTER 2020-08-21 07:07 | Inpatient (IN) ==
--- NOTE | 2020-08-07 13:16 | PAT Medication Instructions ---
Medication Instructions Date of Service August 07, 2020 Home Medications Medication Instructions Recorded blood sugar diagnostic #100 ea 08/15/18 budesonide-formoterol HFA 80 2 puffs INHALATION BID #10.2 gm 08/15/18 mcg-4.5 mcg/actuation aerosol inhaler cholecalciferol (vitamin D3) 25 1,000 units PO DAILY #90 cap 08/15/18 mcg (1,000 unit) capsule lancets 33 gauge #100 ea 08/15/18 albuterol sulfate 90 mcg/actuation 2 puffs INHALATION Q4H PRN #18 gm 10/08/18 aerosol inhaler potassium chloride 10 mEq 10 meq PO BID #180 tab 02/01/20 tablet,extended release metoprolol tartrate 25 mg tablet 25 mg PO BID #180 tab 02/13/20 omeprazole 20 mg capsule,delayed 20 mg PO BID #180 cap 02/14/20 release triamcinolone acetonide 0.5 % 1 applic TOPICAL BID PRN #15 g 02/20/20 topical cream fluticasone furoate 27.5 2 spray INTRANASAL DAILY #47.4 ml 03/06/20 mcg/actuation nasal spray,suspension duloxetine 60 mg capsule,delayed 60 mg PO BID #180 cap 03/07/20 release diclofenac sodium 1 % topical gel 4 g TOP QID PRN #2 tube MDD 32 g 04/04/20 hydrocodone 7.5 mg-acetaminophen 1 tab PO QID PRN #120 tab 07/17/20 325 mg tablet meloxicam 15 mg tablet 15 mg PO DAILY PRN #30 tab 08/06/20 budesonide-formoterol HFA 80 mcg-4.5 mcg/actuation aerosol inhaler 2 puffs INHALATION BID cholecalciferol (vitamin D3) 25 mcg (1,000 unit) capsule 1,000 units PO DAILY albuterol sulfate 90 mcg/actuation aerosol inhaler 2 puffs INHALATION Q4H PRN Lactobacillus rhamnosus GG 10 billion cell capsule 1 cap PO BID bacitracin 500 unit/gram topical packet 1 appln TOP TID metformin 1,000 mg tablet 500 mg PO BID potassium chloride 10 mEq tablet,extended release 10 meq PO BID metoprolol tartrate 25 mg tablet 25 mg PO BID omeprazole 20 mg capsule,delayed release 20 mg PO BID triamcinolone acetonide 0.5 % topical cream 1 applic TOPICAL BID PRN fluticasone furoate 27.5 mcg/actuation nasal spray,suspension 2 spray INTRANASAL DAILY prednisone 5 mg tablet 10 mg PO DAILY PRN tofacitinib 11 mg tablet,extended release 24 hr 11 mg PO QAM duloxetine 60 mg capsule,delayed release 60 mg PO BID diclofenac sodium 1 % topical gel 4 g TOP QID PRN hydrocodone 7.5 mg-acetaminophen 325 mg tablet 1 tab PO QID PRN meloxicam 15 mg tablet 15 mg PO DAILY PRN hydrochlorothiazide 25 mg PO QAM leflunomide [Arava] 20 mg PO QAM losartan 25 mg PO QAM MDD multivitamin 1 tab PO QAM omega-3 fatty acids [Fish Oil Concentrate] 1,000 mg PO QAM oxybutynin chloride 5 mg PO QAM trazodone 50 - 100 mg PO DAILY PRN Continue as directed bacitracin 500 unit/gram topical packet 1 appln TOP TID triamcinolone acetonide 0.5 % topical cream 1 applic TOPICAL BID PRN diclofenac sodium 1 % topical gel 4 g TOP QID PRN *Do not use topical creams near or on surgical site within 24 hours of surgery* ASK your surgeon for instructions meloxicam 15 mg tablet 15 mg PO DAILY PRN DO NOT take the morning of surgery cholecalciferol (vitamin D3) 25 mcg (1,000 unit) capsule 1,000 units PO DAILY Lactobacillus rhamnosus GG 10 billion cell capsule 1 cap PO BID metformin 1,000 mg tablet 500 mg PO BID potassium chloride 10 mEq tablet,extended release 10 meq PO BID hydrochlorothiazide 25 mg PO QAM leflunomide [Arava] 20 mg PO QAM losartan 25 mg PO QAM MDD multivitamin 1 tab PO QAM oxybutynin chloride 5 mg PO QAM trazodone 50 - 100 mg PO DAILY PRN Take morning of surgery With a small sip of water, OTHERWISE NOTHING TO EAT OR DRINK AFTER MIDNIGHT: budesonide-formoterol HFA 80 mcg-4.5 mcg/actuation aerosol inhaler 2 puffs INHALATION BID albuterol sulfate 90 mcg/actuation aerosol inhaler 2 puffs INHALATION Q4H PRN (if needed) metoprolol tartrate 25 mg tablet 25 mg PO BID omeprazole 20 mg capsule,delayed release 20 mg PO BID fluticasone furoate 27.5 mcg/actuation nasal spray,suspension 2 spray INTRANASAL DAILY prednisone 5 mg tablet 10 mg PO DAILY PRN (if needed) duloxetine 60 mg capsule,delayed release 60 mg PO BID hydrocodone 7.5 mg-acetaminophen 325 mg tablet 1 tab PO QID PRN (if needed, may be taken up to four hours before surgery) Take evening before surgery budesonide-formoterol HFA 80 mcg-4.5 mcg/actuation aerosol inhaler 2 puffs INHALATION BID albuterol sulfate 90 mcg/actuation aerosol inhaler 2 puffs INHALATION Q4H PRN (if needed) Lactobacillus rhamnosus GG 10 billion cell capsule 1 cap PO BID metformin 1,000 mg tablet 500 mg PO BID potassium chloride 10 mEq tablet,extended release 10 meq PO BID metoprolol tartrate 25 mg tablet 25 mg PO BID omeprazole 20 mg capsule,delayed release 20 mg PO BID fluticasone furoate 27.5 mcg/actuation nasal spray,suspension 2 spray INTRANASAL DAILY (if needed) prednisone 5 mg tablet 10 mg PO DAILY PRN (if needed) duloxetine 60 mg capsule,delayed release 60 mg PO BID hydrocodone 7.5 mg-acetaminophen 325 mg tablet 1 tab PO QID PRN (if needed) trazodone 50 - 100 mg PO DAILY PRN (if needed) Other Notes If you have any questions please call us at [phone] or [phone] or [phone] or [phone]
--- NOTE | 2020-08-09 09:09 | Anesthesiology Consultation ---
Date of Service August 09, 2020 Assessment & Plan (1) Encounter for pre-operative examination: COVID Status: As of 08/09 assessment, patient denies travel to endemic area, known exposure/sick contacts, or symptoms of COVID19. Patient advised to adhere to social distancing guidelines, wear a mask in public and avoid large crowds or unnecessary travel in the 2 weeks leading up to surgery. Preoperative COVID19 testing to be completed prior to surgery per surgeon's arrangements (07/25 5). Patient encouraged to be extra cautious/conscientious with COVID precautions between COVID testing and surgery. Presumed difficult airway for intubation based on physical exam. History of glidescope #4, ET tube 7.0 with 2013 lumbar spine surgery. BSG AM DOS Chart Review Chart Review: Acceptable Risk for Surgery and Patient seen in Pre Admission Testing Teaching & Discussion Instructed NPO after midnight before surgery, except medications with 15 cc of water. Medication instructions provided according to the PAT guidelines. Advised to get instructions regarding Xeljanz from shafting cleaner. History Surgery Operation Date: 08/21/20 09:20 Proposed Procedures p L2-L4 Decompression/Fusion, L4-S1 Hardware Removal, Spinal Cord Monitoring - Joe Pennington, Height/Weight Height: 5 ft 2 in Weight: 81.1 kg Allergies Allergy/AdvReac Type Severity Reaction Status Date / Time methotrexate AdvReac Intermediate Vomiting Verified 08/07/20 07:44 Medications Home Medications Medication Instructions Recorded Confirmed Last Taken blood sugar diagnostic #100 08/15/18 06/04/20 Unknown budesonide-formoterol HFA 80 2 puffs INHALATION BID #10.2 gm 08/15/18 08/07/20 Unknown mcg-4.5 mcg/actuation aerosol inhaler cholecalciferol (vitamin D3) 25 1,000 units PO DAILY #90 cap 08/15/18 08/07/20 Unknown mcg (1,000 unit) capsule lancets 33 gauge #100 ea 08/15/18 06/04/20 Unknown albuterol sulfate 90 mcg/actuation 2 puffs INHALATION Q4H PRN #18 gm 10/08/18 08/07/20 Unknown aerosol inhaler Lactobacillus rhamnosus GG 10 1 cap PO BID 05/05/19 08/07/20 Unknown billion cell capsule bacitracin 500 unit/gram topical 1 appln TOP TID 05/05/19 08/07/20 Unknown packet metformin 1,000 mg tablet 500 mg PO BID tab 08/21/19 08/07/20 Unknown potassium chloride 10 mEq 10 meq PO BID #180 tab 02/01/20 08/07/20 Unknown tablet,extended release metoprolol tartrate 25 mg tablet 25 mg PO BID #180 tab 02/13/20 08/07/20 Unknown omeprazole 20 mg capsule,delayed 20 mg PO BID #180 cap 02/14/20 08/07/20 Unknown release triamcinolone acetonide 0.5 % 1 applic TOPICAL BID PRN #15 g 02/20/20 08/07/20 Unknown topical cream fluticasone furoate 27.5 2 spray INTRANASAL DAILY #47.4 ml 03/06/20 08/07/20 Unknown mcg/actuation nasal spray,suspension prednisone 5 mg tablet 10 mg PO DAILY PRN tab 03/06/20 08/07/20 Unknown tofacitinib 11 mg tablet,extended 11 mg PO QAM 03/06/20 08/07/20 Unknown release 24 hr duloxetine 60 mg capsule,delayed 60 mg PO BID #180 cap 03/07/20 08/07/20 Unknown release diclofenac sodium 1 % topical gel 4 g TOP QID PRN #2 tube MDD 32 g 04/04/20 08/07/20 Unknown hydrocodone 7.5 mg-acetaminophen 1 tab PO QID PRN #120 tab 07/17/20 08/07/20 Unknown 325 mg tablet hydrochlorothiazide 25 mg PO QAM 08/07/20 08/07/20 Unknown leflunomide [Arava] 20 mg PO QAM 08/07/20 08/07/20 Unknown losartan 25 mg PO QAM MDD 1 08/07/20 08/07/20 Unknown multivitamin 1 tab PO QAM 08/07/20 08/07/20 Unknown omega-3 fatty acids [Fish Oil 1,000 mg PO QAM 08/07/20 08/07/20 Unknown Concentrate] oxybutynin chloride 5 mg PO QAM 08/07/20 08/07/20 Unknown meloxicam 15 mg tablet 15 mg PO DAILY PRN #90 tab 08/08/20 Unknown trazodone 50 mg tablet 50 - 100 mg PO DAILY PRN #180 tab 08/08/20 Unknown Past Medical History Medical History Benign essential hypertension Controlled type 2 diabetes mellitus COPD with asthma Using rescue inhaler PRN for allergies, very rare use (once/month usually) Hyperlipidemia not aware and not taking meds Low back pain Psoriasis Rheumatoid arthritis Ulcerative esophagitis Venous insufficiency Exercise / Class Metabolic Activity III < 4 Walking/Shop/Light housework (Denies CP or SOB with ambulation, uses cane, just limited by pain) Past Family History Family History Father Heart disease Myocardial infarction Mother Cerebrovascular disorder Depression Hypertension Brother Myocardial infarction Denies family history of Ovarian cancer Prostate cancer Breast cancer Colorectal cancer Past Surgical History Surgical History H/O dental abscess repair in jaw History of back surgery fusion of lumbar fusion History of cystoscopy History of hip replacement right History of tubal ligation Past Anesthesia History No Hx of Anesthesia Complications (other than nausea), Difficult Airway (BASED ON EXAM) and No Family Hx of Anesthesia Complications History of PONV No Hx of Motion Sickness and History of PONV (NAUSEA ONLY) Social History Smoking Status: Never smoker Do You Dip or Chew Tobacco: No Hx Alcohol Use: No Hx Substance Use: No substance use type: does not use Review of Systems Pt denies any recent chest pain, shortness of breath, palpitations, cough, fever, URI, or uncontrolled acid reflux (controlled with meds). Physical Exam Vital Signs BP: 139/70 P: 67bpm SPO2: 98% RA T: 98.3 F R: 16 ENMT Mouth: + dentures (partial upper); no dental restorations, no chipped teeth and no loose teeth Thyromental Distance: < 3.5 Finger Breadths (2.5) Mallampati Class: IV Neck + thick neck; neck extension not limited Respiratory normal respiratory effort, lungs clear to auscultation Cardiovascular RRR, no murmur, no edema Lab Results Anesthesia Preop Results Results Anesthesia Widget: WBC 7.74 K/uL (4.8-10.8) 08/09/20 Hgb 12.3 g/dL (12.0-16.0) 08/09/20 Hct 36.1 % (37-47) L 08/09/20 Plt 196 K/uL (130-400) 08/09/20 Na 134 mmol/L (136-145) L 08/09/20 K 4.4 mmol/L (3.5-5.1) 08/09/20 Cl 97 mmol/L (98-107) L 08/09/20 CO2 29 mmol/L (21-32) 08/09/20 BUN 16 mg/dl (7-18) 08/09/20 Creat 0.96 mg/dl (0.6-1.2) 08/09/20 Glucose Level 108 mg/dl (70-99) H 08/09/20 PT 10.3 Seconds (9.0-12.0) 08/09/20 PTT 24.2 Seconds (21.0-31.0) 08/09/20 INR 1.0 (0.9-1.1) 08/09/20 Urine Color Yellow 08/09/20 Urine Appearance Clear (Clear) 08/09/20 Urine pH 6.0 (4.5-7.5) 08/09/20 Urine Specific [place] 1.013 (1.000-1.030) 08/09/20 Urine Protein Negative (Negative) 08/09/20 Urine Glucose (UA) Negative (Negative) 08/09/20 Urine Ketones Negative (Negative) 08/09/20 Urine Blood Negative (Negative) 08/09/20 Urine Nitrite Negative (Negative) 08/09/20 Urine Bilirubin Negative (Negative) 08/09/20 Urine Urobilinogen Negative (Negative) 08/09/20 Urine Leukocyte Esterase Negative (Negative) 08/09/20 Blood Type AB Negative 08/09/20 Antibody Screen NEGATIVE 08/09/20 Testing Electrocardiogram Date: 08/09/20 Findings: + NSR @ (64bpm) and + no change from (2017) Chest X-Ray Date: 08/09/20 FINDINGS: No pneumothorax. No pleural effusions. The lungs are clear. The heart remains top normal in size. No evidence for pulmonary edema. Partially visualized lumbar spinal fusion hardware is noted. Mild degenerative changes within the thoracic spine. IMPRESSION: No significant change compared to the prior study. No acute process. Stress Test Date: 07/23/16 Type: DSE Resting EF: 50-55% Negative dobutamine stress echo for myocardial ischemia at > 100% MPHR. No chest pain. No ECG changes. Baseline echocardiogram notes normal LV systolic function and no significant valve disease. Borderline cLVH. Pulmonary Function Test Date: 03/19/18 FINDINGS: Pre-bronchodilator spirometry demonstrates moderate obstructive airways disease. FVC was 68% predicted. FEV1 was 59% of predicted. [id number] was 35% of predicted. There was very minimal change after inhaled bronchodilator. FVC improved 10%, to 74% predicted. FEV1 improved 8% to 64% predicted. IMPRESSION: Moderate obstructive airways disease with slight improvement after inhaled bronchodilator.
[~2020-08-21 07:07] MED LIST changes: +ACETAMINOPHEN 500 MG TAB PO SCH; +ALBUMIN HUMAN 5% 12.5 GM/250 ML VIAL IV ONE; -ASPI-232 PO; -ATEN50TA PO; -CALC600T9 PO; -CHOL1CAP30 PO; -CLB/200 PO; +CeleBREX 200 MG CAP PO SCH; +GABAPENTIN 300 MG CAP PO SCH; -GFNSR600 PO; +LR 15ML/HR IV SCH; -MULT-506 PO; -OMEP20CA59 PO; -OXYC1TAB3 PO; +SUGAMMADEX SODIUM 200 MG/2 ML VIAL IV ONE; +ceFAZolin 2000MG 2,000 MG/15 ML SYR IV SCH
[2020-08-21] MEDS ORDERED: HYDROmorphone INJ 2 MG/ML SYR/VIAL ONE (08:05)
[2020-08-21] MEDS ORDERED: MIDAZOLAM HCL 1 MG/ML 2ML VIAL ONE (08:05)
[2020-08-21] MEDS ORDERED: LIDOCAINE 2% 2 ML VIAL/AMP(20MG/ML) INFIL ONE (08:05)
[2020-08-21] MEDS ORDERED: DEXAMETHASONE SOD INJ 4 MG/ML VIAL ONE (08:05)
[2020-08-21] MEDS ORDERED: ONDANSETRON INJ 2 MG/ML 2 ML VIAL ONE (08:05)
[2020-08-21] MEDS ORDERED: PROPOFOL IV EMULSION 10 MG/ML 20 ML VIAL IV ONE (08:05)
[2020-08-21] MEDS ORDERED: ROCURONIUM BROMIDE 10 MG/ML 5 ML VIAL IV ONE (08:05)
[2020-08-21] MEDS ORDERED: ONDANSETRON INJ 2 MG/ML 2 ML VIAL IV PRN ×2 (08:07→13:45)
[2020-08-21] MEDS ORDERED: PROMETHAZINE HCL 6.25 MG in SODIUM CHLORIDE 0.9% 50 ML IV PRN (08:07)
[2020-08-21] MEDS ORDERED: ePHEDrine sulfate 50 MG/ML AMP IV PRN (08:07)
[2020-08-21] MEDS ORDERED: HYDROmorphone INJ 2 MG/ML SYR/VIAL IV PRN (08:07)
[2020-08-21] MEDS ORDERED: ATROPINE SULFATE 0.1 MG/ML 10ML SYR IV PRN (08:07)
--- NOTE | 2020-08-21 08:53 | History & Physical Bridge Note ---
Date of Service August 21, 2020 History & Physical Bridge Note I have examined the patient, reviewed the History & Physical and in the interval since the performance of the History & Physical I have noted the following changes of clinical significance: no changes noted
--- NOTE | 2020-08-21 08:54 | History & Physical Report ---
Date of Service August 21, 2020 Assessment & Plan (1) Neurogenic claudication due to lumbar spinal stenosis: Admission and Anticipated Discharge Date Admission Date: L2-L4 decompression fusion, L4-S1 hardware removal History of Present Illness Chief Complaint: Back and bilateral leg pain Primary Care Provider: Asad Casiano MD This is a 70-year-old female presents with chronic persistent back and leg pain. Failing course of nonoperative care she is here for surgical intervention. Allergies Allergy/AdvReac Type Severity Reaction Status Date / Time methotrexate AdvReac Intermediate Vomiting Verified 08/21/20 07:51 Home Medications Medication Instructions Recorded Confirmed Type blood sugar diagnostic #100 ea 08/15/18 08/15/20 Rx cholecalciferol (vitamin D3) 25 1,000 units PO DAILY #90 cap 08/15/18 08/21/20 Rx mcg (1,000 unit) capsule lancets 33 gauge #100 ea 08/15/18 08/15/20 Rx albuterol sulfate 90 mcg/actuation 2 puffs INHALATION Q4H PRN #18 gm 10/08/18 08/21/20 Rx aerosol inhaler metformin 1,000 mg tablet 500 mg PO BID tab 08/21/19 08/21/20 History potassium chloride 10 mEq 10 meq PO BID #180 tab 02/01/20 08/21/20 Rx tablet,extended release metoprolol tartrate 25 mg tablet 25 mg PO BID #180 tab 02/13/20 08/21/20 Rx omeprazole 20 mg capsule,delayed 20 mg PO BID #180 cap 02/14/20 08/21/20 Rx release triamcinolone acetonide 0.5 % 1 applic TOPICAL BID PRN #15 g 02/20/20 08/21/20 Rx topical cream fluticasone furoate 27.5 2 spray INTRANASAL DAILY #47.4 ml 03/06/20 08/21/20 Rx mcg/actuation nasal spray,suspension tofacitinib 11 mg tablet,extended 11 mg PO QAM 03/06/20 08/21/20 History release 24 hr duloxetine 60 mg capsule,delayed 60 mg PO BID #180 cap 03/07/20 08/21/20 Rx release hydrochlorothiazide 25 mg PO QAM 08/07/20 08/21/20 History losartan 25 mg PO QAM MDD 1 08/07/20 08/21/20 History multivitamin 1 tab PO QAM 08/07/20 08/21/20 History omega-3 fatty acids [Fish Oil 1,000 mg PO QAM 08/07/20 08/21/20 History Concentrate] oxybutynin chloride 5 mg PO QAM 08/07/20 08/21/20 History meloxicam 15 mg tablet 15 mg PO DAILY PRN #90 tab 08/08/20 08/21/20 Rx trazodone 50 mg tablet 50 - 100 mg PO DAILY PRN #180 tab 08/08/20 08/21/20 Rx fluticasone fur. 100 mcg-umeclid 1 inh INHALATION DAILY #60 ea 08/15/20 08/21/20 Rx 62.5 mcg-vilant 25 mcg inhalat.powder hydrocodone 7.5 mg-acetaminophen 1 tab PO QID PRN #120 tab 08/20/20 08/21/20 Rx 325 mg tablet Past Med/Surg History Medical History (Updated 08/21/20 @ 08:54 by Joe Pennington DO) Benign essential hypertension Chronic low back pain Controlled type 2 diabetes mellitus COPD with asthma Using rescue inhaler PRN for allergies, very rare use (once/month usually) Hyperlipidemia not aware and not taking meds Low back pain Psoriasis Rheumatoid arthritis Ulcerative esophagitis Venous insufficiency Surgical History H/O dental abscess repair in jaw History of back surgery fusion of lumbar fusion History of cystoscopy History of hip replacement right History of tubal ligation Family History Father Heart disease Myocardial infarction Mother Cerebrovascular disorder Depression Hypertension Brother Myocardial infarction Denies family history of Ovarian cancer Prostate cancer Breast cancer Colorectal cancer Social History Smoking Status: Never smoker packs per day: 0.25; Second Hand Exposure: No; Do You Dip or Chew Tobacco: No; Tobacco Cessation Education Requested by Patient: No Hx Alcohol Use: No Hx Substance Use: No Preferred Language: Romanian Communication Ability: Effective Visual Impairment: No Limitations Hearing Ability: Normal Supplier Quality Required: No Beliefs That Will Affect Care: None marital status: Current Living Situation: Spouse current occupational status: retired 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, [employer] Other Information That Helps Us Care for You: No Feels Safe at Home: Yes Safety Concerns: Feels Safe At This Time Childhood Exposure to Second-Hand Smoke: Yes caffeine: Yes (coffee) during the past year weight has: decreased > 10 lbs Dental Care, Regularly: Yes Physical Activity Frequency: Does not Exercise Seatbelt Use: always Sunscreen Use: Yes Assistive Devices: Denture - Upper, Denture - Lower and Glasses Physical Exam Physical Exam: Patient is alert and oriented Heart regular in rhythm Lungs clear to auscultation Results & Data ([facility]) Vital Signs (Past 12 Hours) Vital Signs Temp Pulse Resp BP Pulse Ox 08/21/20 08:00 37.3 C 67 20 168/77 H 98
[2020-08-21] MEDS ORDERED: BUPIVACAINE/EPINEPHRINE 0.5% MPF 1:200,000 30 ML VIAL ONE (09:00)
[2020-08-21] MEDS ORDERED: FLOSEAL HEMOSTATIC MATRIX 10ML TOP ONE ×2 (10:58→11:01)
[2020-08-21] MEDS ORDERED: ESMOLOL HCL INJ 10 MG/ML 10ML VIAL IV ONE (11:15)
--- NOTE | 2020-08-21 11:42 | Operative Report ---
Post Operative Report Pre & Post Diagnosis Operation Date: 08/21/20 09:05 Pre-Op Diagnosis: Neurogenic Claudication due to Lumbar Spinal Stenosis Post-Op Diagnosis: Neurogenic Claudication due to Lumbar Spinal Stenosis I identified the patient and participated in the time-out.: Yes Procedure Operation Date: 08/21/20 09:05 Actual Procedures #1 removal of posterior instrumentation L4-L5 L5-S1. #2 exploration of fusion L4-L5 L5-S1. #3 lumbar decompression with bilateral medial facetectomies and foraminotomies L1-2, L2-3 and L3-4. #4 posterior spinal fusion L2-3 L3-4. #5 placement posterior instrumentation L2-S1. #6 interbody fusion L3-L4. #7 placement peek cage 8 x 22 mm at L3-L4. #8 placement locally harvested morselized autograft in the posterior gutters. #9 placement infuse collagen sponge, master graft in the posterior lateral gutters and I factor in the interbody space. Surgeon Joe Pennington, DO Office Rental Clerk Kimberly Castro Estimated Blood Loss 300 Findings See Below The patient is 5 foot 2 inches tall weighing over 81 kg with a BMI in excess of 32. Patient's body habitus did contribute to significant technical difficulty requiring her deepest retractors longus instruments in order to perform her procedure. This had at least 50% increase to the operative time. Specimens None Indications This is a 70-year-old female the presents above-mentioned diagnosis after failing since course of nonoperative care she is here for the above-mentioned procedure. Description of Procedure Patient was met with identified informed consent obtained. Patient was then taken to the operative suite underwent ablation placed in a prone position the [facility] top Reji frame. All bony prominences well-padded eyes inspected to ensure no external pressure placed upon the. This point the lumbar spine was prepped and draped in a sterile fashion. Sharp dissection with the assistance of Bovie cautery performed down to and exposing the lamina and transverse processes of L2-L3 and instrumentation at L4-L5 and the sacral ala bilaterally. I then proceeded move the hardware at L4-L5 and S1 levels bilaterally explore the fusion mass noting it to be mature and intact. Then performed a complete laminectomy of L3 L2 partial laminectomy of L1 including bilateral medial facetectomies and foraminotomies addressing severe spinal stenosis as well as evidence of herniated free fragments in the left lateral recess. After complete decompression pedicle screws were placed in L2-L3-L4 and S1 levels bilaterally with assistance of fluoroscopy the proper sized luisana placed. By way of a transforaminal approach on the left complete discectomy of L3-L4 was performed endplates curetted to subcortical being bone and an 8 x 22 mm peek cage filled with I factor tapped in position. The rods and locked in final position bilaterally. The transverse processes of L2-L3-L4 burred to subcortical bleeding bone. Infuse collagen sponge master graft local autograft was placed in the posterior gutters. 15 round JESSICA drain inserted. The incision was then closed with 1 Vicryl the fascia 2-0 Vicryl subcutaneously and 4 Monocryl for final skin closure. Steri-Strip sterile dressings placed. Patient will continue PACU stable condition. Please note spinal cord monitoring was utilized at the procedure no changes noted. Veronica Castro was present at the entire procedure involved the patient positioning complex portions of the surgery and final skin closure. I attest to the content of the Intraoperative Record and any orders documented therein. Any exceptions are noted below.
--- NOTE | 2020-08-21 11:55 | Fluoroscopy Report ---
FL lumbar spine 2-3V CLINICAL HISTORY: Decompression and fusion. Hardware removal. COMPARISON STUDY: Lumbar spine radiographs December 01, 2012. FLUOROSCOPY TIME: 16 seconds. FLUOROSCOPIC IMAGES: 3 FINDINGS: L3-L4, L4-L5 and L5-S1 discectomies are noted. Posterior decompression is noted at multiple levels. The L5 pedicle screws been removed. There are bilateral pedicle screws at the L2, L3, L4 4 a nd S1 levels. IMPRESSION: Fluoroscopy provided during hardware removal and subsequent L3-L4 discectomy and multile jumana posterior decompression and bilateral pedicle screw fusion. ACT 112: Negative or not required by law. Electronically signed by: Michael Kemp M.D. 08/21/2020 11:54 AM
[2020-08-21] MEDS: fentaNYL citrate 100 MCG/2 ML VIAL IV PRN ×2 (12:18→12:28)
[2020-08-21] MEDS ORDERED: LABETALOL HCL IV 5 MG/ML 20ML IV STA ×2 (12:21→12:52)
[2020-08-21] MEDS ORDERED: LABETALOL HCL IV 5 MG/ML 20ML IV ONE (12:21)
--- NOTE | 2020-08-21 12:22 | Anesthesiology Progress Note ---
Date of Service August 21, 2020 Anesthesia Post Procedure Vital Signs Vital Signs: Temp Pulse Pulse Resp BP BP Pulse Ox 08/21/20 11:54 36.9 C 83 12 189/90 H 98 08/21/20 08:00 37.3 C 67 20 168/77 H 98 Pain Intensity Bilateral Leg: Pain Intensity: 7 Transfer of Care Handoff Completed per policy Notes Mental Status: alert / awake / arousable Patient Amnestic to Procedure: Yes Nausea / Vomiting: adequately controlled Pain: adequately controlled Airway Patency, RR, SpO2: stable & adequate BP & HR: stable & adequate Hydration State: stable & adequate Anesthetic Complications: no major complications apparent
[2020-08-21] MEDS ORDERED: LORazepam 0.5 MG TAB PO PRN (13:45)
[2020-08-21] MEDS ORDERED: diphenhydrAMINE Capsule 25 MG CAP PO PRN (13:45)
[2020-08-21] MEDS ORDERED: ALUMINUM/MAGNESIUM SUSP 30 ML UDC PO PRN (13:45)
[2020-08-21] MEDS ORDERED: DO NOT ADMINISTER FLU VACCINE PRN (13:45)
[2020-08-21] MEDS ORDERED: ACETAMINOPHEN 1,000 MG/100 ML VIAL IV PRN (13:45)
[2020-08-21] MEDS ORDERED: traZODone HCL 50 MG TAB PO PRN (13:45)
[2020-08-21] MEDS ORDERED: DO NOT ADMINISTER PNEUMOCOCCAL VACCINE PRN (13:45)
[2020-08-21] MEDS ORDERED: ONDANSETRON 4 MG OD TAB PO PRN (13:45)
[2020-08-21] MEDS ORDERED: traMADol HCL 50 MG TABLET PO PRN (13:45)
[2020-08-21] MEDS ORDERED: ALBUTEROL HFA 8 GM INHALER INH PRN (13:45)
[2020-08-21] MEDS ORDERED: PROMETHAZINE HCL 12.5 MG in SODIUM CHLORIDE 0.9% 50 ML IV PRN (13:45)
[2020-08-21] MEDS ORDERED: HYDROmorphone INJ 1 MG/ML SYRINGE IV PRN (13:45)
[2020-08-21] MEDS ORDERED: NALOXONE HCL 0.4 MG/1 ML VIAL/CARP IV PRN (13:45)
[2020-08-21] MEDS ORDERED: FAMOTIDINE 20 MG TAB PO PRN (13:45)
[2020-08-21] MEDS ORDERED: HYDROmorphone INJ 0.5 MG/0.5 ML SYR IV PRN (13:45)
[2020-08-21] MEDS ORDERED: LORazepam 0.5 MG/1 ML VIAL IV PRN (13:45)
[2020-08-21] MEDS ORDERED: MAGNESIUM HYDROXIDE SUSP 30 ML UDC PO PRN (13:45)
[2020-08-21] MEDS ORDERED: SOD PHOSPHATE/SOD BIPHOSPHATE ENEMA 132 ML BTL PR PRN (13:45)
[2020-08-21] MEDS ORDERED: ACETAMINOPHEN 500 MG TAB PO PRN (13:45)
[2020-08-21] MEDS ORDERED: hydrOXYzine HCl 25 MG TAB PO PRN (13:45)
[2020-08-21] MEDS ORDERED: METOCLOPRAMIDE HCL INJ 5 MG/ML 2 ML VIAL IV PRN (13:45)
[2020-08-21] MEDS: SODIUM CHLORIDE 0.9% 1000ML 1,000 ML IV SCH (14:22)
--- NOTE | 2020-08-21 14:54 | Hospitalist Consultation ---
Date of Consultation August 21, 2020 Assessment & Plan (1) Neurogenic claudication due to lumbar spinal stenosis: Status post lumbar decompression fusion with removal of previous hardware on 08/21/[address] Pennington Postoperative management as per Dr. Pennington -Pain control, bowel regimen, antiemetics as needed -Receiving IV fluids with normal saline through tomorrow -Follow CBC, BMP in the morning PT/OT as per orthopedics (2) Benign essential hypertension: Blood pressures quite elevated postoperatively requiring IV labetalol in the PACU Remain elevated here Showing took her metoprolol prior to surgery -Give losartan 25 mg p.o. x1 now -Continue home HCTZ, losartan, and metoprolol twice daily -Can give IV hydralazine if needed for SBP greater than 180 if not improving with giving p.o. losartan and pain control (3) Chronic pain: Continue home duloxetine 60 mg p.o. twice daily Pain control for back surgery as above (4) Controlled type 2 diabetes mellitus: With some hyperglycemia here and may have received steroids preoperatively Latest hemoglobin A1c in 08/15/2020 was quite well controlled at 6.1% Holding home Metformin Will add on NovoLog sliding scale with correction factor of 30, range 100-140, and carb ratio of 1:15 (5) COPD with asthma: No acute issues, weaning off oxygen after surgery Continue home Trelegy once daily and albuterol as needed (6) Osteopenia: No acute issues Continue home vitamin D (7) Rheumatoid arthritis: Follows with Dr. Pritchard of rheumatology Is to hold her Xeljanz for 1 week after surgery Has been on and off prednisone a lot for last year Monitor for need for stress dose steroids-none needed currently -Holding home NSAIDs (8) Ulcerative esophagitis: Continue PPI twice daily No acute issues (9) Insomnia: Continue home trazodone (10) Overactive bladder: Continue home oxybutynin Watch for urinary retention after Brice catheter removal (11) DVT prophylaxis: SCDs only given spinal surgery Disposition-continued stay on medical/surgical floor Hospital service will follow along History of Present Illness Reason for Consultation: Medical management Requesting Physician: Dr. Pennington Attending Physician: Joe Pennington, DO History of Present Illness This patient is a 70-year-old female with a history of DM 2, HTN, RA, COPD with asthma, hyperlipidemia, psoriasis, ulcerative esophagitis, venous insufficiency, osteopenia, and chronic pain secondary to lumbar spinal stenosis with neurogenic claudication who is here in the hospital status post removal of hardware and lumbar decompression and fusion at L2-S1. The hospital service was consulted for postoperative medical management. Patient reports feeling very well. Has some soreness in the lower back but no further pain down the left lower extremity that was excruciating prior to surgery. She denies any chest pain or shortness of breath, denies any nausea or vomiting. She does state clear liquids for lunch. Last bowel movement was yesterday morning. We went through her history thoroughly. Allergies Allergy/AdvReac Type Severity Reaction Status Date / Time methotrexate AdvReac Intermediate Vomiting Verified 08/21/20 07:51 Home Medications Medication Instructions Recorded Confirmed Type blood sugar diagnostic #100 ea 08/15/18 08/15/20 Rx cholecalciferol (vitamin D3) 25 1,000 units PO DAILY #90 cap 08/15/18 08/21/20 Rx mcg (1,000 unit) capsule lancets 33 gauge #100 ea 08/15/18 08/15/20 Rx albuterol sulfate 90 mcg/actuation 2 puffs INHALATION Q4H PRN #18 gm 10/08/18 08/21/20 Rx aerosol inhaler metformin 1,000 mg tablet 500 mg PO BID tab 08/21/19 08/21/20 History potassium chloride 10 mEq 10 meq PO BID #180 tab 02/01/20 08/21/20 Rx tablet,extended release metoprolol tartrate 25 mg tablet 25 mg PO BID #180 tab 02/13/20 08/21/20 Rx omeprazole 20 mg capsule,delayed 20 mg PO BID #180 cap 02/14/20 08/21/20 Rx release triamcinolone acetonide 0.5 % 1 applic TOPICAL BID PRN #15 g 02/20/20 08/21/20 Rx topical cream fluticasone furoate 27.5 2 spray INTRANASAL DAILY #47.4 ml 03/06/20 08/21/20 Rx mcg/actuation nasal spray,suspension tofacitinib 11 mg tablet,extended 11 mg PO QAM 03/06/20 08/21/20 History release 24 hr duloxetine 60 mg capsule,delayed 60 mg PO BID #180 cap 03/07/20 08/21/20 Rx release hydrochlorothiazide 25 mg PO QAM 08/07/20 08/21/20 History losartan 25 mg PO QAM MDD 1 08/07/20 08/21/20 History multivitamin 1 tab PO QAM 08/07/20 08/21/20 History omega-3 fatty acids [Fish Oil 1,000 mg PO QAM 08/07/20 08/21/20 History Concentrate] oxybutynin chloride 5 mg PO QAM 08/07/20 08/21/20 History meloxicam 15 mg tablet 15 mg PO DAILY PRN #90 tab 08/08/20 08/21/20 Rx trazodone 50 mg tablet 50 - 100 mg PO DAILY PRN #180 tab 08/08/20 08/21/20 Rx fluticasone fur. 100 mcg-umeclid 1 inh INHALATION DAILY #60 ea 08/15/20 08/21/20 Rx 62.5 mcg-vilant 25 mcg inhalat.powder hydrocodone 7.5 mg-acetaminophen 1 tab PO QID PRN #120 tab 08/20/20 08/21/20 Rx 325 mg tablet Patient History Medical History (Updated 08/21/20 @ 15:15 by Erika Brunson MD) Benign essential hypertension Chronic low back pain Chronic pain Controlled type 2 diabetes mellitus COPD with asthma Using rescue inhaler PRN for allergies, very rare use (once/month usually) Hyperlipidemia not aware and not taking meds Insomnia Low back pain Overactive bladder Psoriasis Rheumatoid arthritis Ulcerative esophagitis Venous insufficiency Surgical History H/O dental abscess repair in jaw History of back surgery fusion of lumbar fusion History of cystoscopy History of hip replacement right History of tubal ligation Family History Father Heart disease Myocardial infarction Mother Cerebrovascular disorder Depression Hypertension Brother Myocardial infarction Denies family history of Ovarian cancer Prostate cancer Breast cancer Colorectal cancer Social History Smoking Status: Never smoker packs per day: 0.25; Second Hand Exposure: No; Do You Dip or Chew Tobacco: No; Tobacco Cessation Education Requested by Patient: No Hx Alcohol Use: No Hx Substance Use: No Preferred Language: Georgian Communication Ability: Effective Visual Impairment: No Limitations Hearing Ability: Normal Table Keeper Required: No Beliefs That Will Affect Care: None marital status: Current Living Situation: Spouse current occupational status: 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, Other Information That Helps Us Care for You: No Feels Safe at Home: Yes Safety Concerns: Feels Safe At This Time Childhood Exposure to Second-Hand Smoke: Yes caffeine: Yes (coffee) during the past year weight has: decreased > 10 lbs Dental Care, Regularly: Yes Physical Activity Frequency: Does not Exercise Seatbelt Use: always Sunscreen Use: Yes Assistive Devices: Walker Review of Systems Review of Systems: All systems reviewed & are unremarkable except as noted in HPI & below Physical Exam Constitutional: WD/WN, vitals as above Eyes: + anicteric sclerae ENMT: external ear and nose normal, oropharynx normal Neck: trachea midline, no thyromegaly Respiratory: normal respiratory effort, lungs clear to auscultation Cardiovascular: RRR, no murmur, no edema Chest (Breasts): Chest: normal inspection of chest Gastrointestinal (Abdomen): normal bowel sounds, soft, nontender, no hepatosplenomegaly Musculoskeletal: Extremities: extremities normal to inspection; no cyanosis and no clubbing Skin: no rashes, warm and dry Neurologic: moves all extremities and awake; no focal motor deficits Psychiatric: A+Ox3, euthymic affect Lymphatic: no lymphedema Results & Data Results & Data ([facility]) Vital Signs (Past 12 Hours) Vital Signs Temp Pulse Pulse Resp BP BP Pulse Ox 08/21/20 14:26 36.9 C 65 18 183/71 H 98 08/21/20 14:05 36.9 C 70 18 165/71 H 98 08/21/20 13:34 36.9 C 67 16 189/79 H 96 08/21/20 13:20 68 20 178/82 H 96 08/21/20 13:10 36.4 C L 65 20 176/72 H 95 08/21/20 13:00 71 20 178/69 H 97 08/21/20 12:50 73 20 195/89 H 93 08/21/20 12:40 70 20 205/89 H 93 08/21/20 12:30 87 20 196/87 H 95 08/21/20 12:20 87 20 194/80 H 96 08/21/20 12:10 86 20 213/87 H 96 08/21/20 12:00 79 16 206/79 H 96 08/21/20 11:54 36.9 C 83 12 189/90 H 98 08/21/20 08:00 37.3 C 67 20 168/77 H 98 Laboratory Results 08/21/20 08/21/20 08/21/20 Range/Units 14:21 11:57 07:41 POC Glucose 196 H 191 H (70-99) mg/dl COVID-19 Eval Order SARS-CoV-2, RNA, NAAT (NEGATIVE) Blood Type AB Negative Antibody Screen NEGATIVE Crossmatch See Detail 08/21/20 08/21/20 08/21/20 Range/Units 07:35 07:28 07:28 POC Glucose 111 H (70-99) mg/dl COVID-19 Eval [facility] SARS-CoV-2, RNA, NAAT NEGATIVE (NEGATIVE) Blood Type Antibody Screen Crossmatch ECG Additional Comments: Preoperative ECG reviewed and is with normal sinus rhythm, no ischemic changes PG Care Time/CCT Total # of Minutes Spent Total Time Spent with Patient: Total time spent is greater than 50% in coordination of care (as documented) at patient's floor/unit and/or counseling patient: Coding Level of Care Code 84766 Inpt Consult Level 3 Diagnoses Neurogenic claudication due to lumbar spinal stenosis M48.062 Benign essential hypertension I10 Chronic pain G89.29 Controlled type 2 diabetes mellitus E11.9 COPD with asthma J44.9 Osteopenia M85.80 Rheumatoid arthritis M06.9 Ulcerative esophagitis K22.10 Insomnia G47.00 Overactive bladder N32.81 DVT prophylaxis Z29.9
[2020-08-21] MEDS ORDERED: LOSARTAN POTASSIUM 25 MG TAB PO ONE (15:05)
[2020-08-21] MEDS ORDERED: GLUCOSE 40% GEL 15 GM TUBE PO PRN (15:08)
[2020-08-21] MEDS ORDERED: DEXTROSE 50% 50 ML SYRINGE IV PRN (15:08)
[2020-08-21] MEDS ORDERED: GLUCOSE 10 TABS/TUBE PO PRN (15:08)
[2020-08-21] MEDS ORDERED: GLUCAGON FOR INJ 1 MG VIAL SQ PRN (15:08)
[2020-08-21] MEDS ORDERED: CARBOHYDRATES FOR HYPOGLYCEMIA PO PRN (15:08)
[2020-08-21] MEDS: oxyCODONE HCL IR 5 MG TAB (IMMEDIATE RELEASE) PO PRN ×2 (15:40→20:19)
[2020-08-21] MEDS: ceFAZolin 2000MG 2,000 MG/15 ML SYR IV SCH (16:55)
[2020-08-21] MEDS: INSULIN ASPART 100 UNITS/ML 3 ML PEN SC SCH ×2 (17:32→21:35)
[2020-08-21] MEDS: METOPROLOL TARTRATE 25 MG TAB PO SCH (20:08)
[2020-08-21] MEDS: DULoxetine HCL 60 MG CAP PO SCH (20:08)
[2020-08-21] MEDS: POTASSIUM CHLORIDE 10 MEQ TABCR PO SCH (20:10)
[2020-08-21] MEDS: PANTOprazole 40 MG TAB PO SCH (20:10)
[2020-08-21] MEDS: DOCUSATE SODIUM/SENNA 50/8.6MG TAB PO SCH (20:11)
[2020-08-22] MEDS: oxyCODONE HCL IR 5 MG TAB (IMMEDIATE RELEASE) PO PRN ×5 (00:39→23:35)
[2020-08-22] MEDS: ceFAZolin 2000MG 2,000 MG/15 ML SYR IV SCH (00:46)
[2020-08-22] MEDS: SODIUM CHLORIDE 0.9% 1000ML 1,000 ML IV SCH (00:49)
[2020-08-22] MEDS: POLYETHYLENE (MIRALAX) 17 GM PACK PO SCH ×4 (06:01→23:35)
[2020-08-22 06:12] LABS: Immature Granulocytes # (auto) 0.02 K/uL (0.00-0.02); Immature Granulocytes % (auto) 0.2 %; Lymphocytes # (auto) 1.09 K/uL (1.2-3.4); Lymphocytes % (auto) 11.9 %; Mean Corpuscular Hemoglobin 30.7 pg (25-34); Mean Corpuscular Hgb Conc 34.6 g/dL (32-36); Mean Corpuscular Volume 88.7 fL (80-100); Mean Platelet Volume 10.7 fL (7.4-10.4); Monocytes # (auto) 0.82 K/uL (0.11-0.59); Neutrophils # (auto) 7.22 K/uL (1.4-6.5); Neutrophils % (auto) 78.9 %; Platelet Count 139 K/uL (130-400); RDW Coefficient of Variation 13.7 % (11.5-14.5); RDW Standard Deviation 44.9 fL (36.4-46.3); Red Blood Count 2.93 M/uL (4.2-5.4); White Blood Count 9.15 K/uL (4.8-10.8)
[2020-08-22 06:29] LABS: BUN Creatinine Ratio 19.5 (10-20); Calcium 9.1 mg/dl (8.5-10.1); Creatinine Clr Calc Pharmacy 60.9 ml/min; Est GFR (African American) 79.9 ml/min; Est GFR (Non-African American) 68.9 ml/min; Potassium 4.4 mmol/L (3.5-5.1)
--- NOTE | 2020-08-22 07:54 | Hospitalist Progress Note ---
Date of Service August 22, 2020 Assessment & Plan (1) Neurogenic claudication due to lumbar spinal stenosis: POD# 1 s/p lumbar decompression fusion with removal of previous hardware on 08/21/[address] Pennington Pre-op h/h 12.3/36.1 EBL 300cc. JESSICA output 425cc H/h 11/18 -- acute blood loss anemia from surgery as well as dilutional from IVF which were continued through this morning PT/OT/pain management/bowel regimen per primary service Labs in AM Plans for d/c later in the week (2) Benign essential hypertension: Blood pressures quite elevated postoperatively requiring IV labetalol in the PACU Given losartan 25mg x 1 last evening and continued her home HCTZ, losartan and metoprolol BID BP controlled currently 144/69 in setting of pain Hydralazine prn (3) Chronic pain: Continue home duloxetine 60 mg p.o. twice daily Pain control for back surgery as above (4) Controlled type 2 diabetes mellitus: With some hyperglycemia here and may have received steroids preoperatively Latest hemoglobin A1c in 08/15/2020 was quite well controlled at 6.1% Holding home Metformin while inpatient Added on NovoLog sliding scale with correction factor of 30, range 100-140, and carb ratio of 1:15 BSGs acceptable (5) COPD with asthma: No acute issues, weaning off oxygen after surgery -- currently 94% on RA Continue home Trelegy once daily and albuterol as needed (6) Osteopenia: No acute issues Continue home vitamin D (7) Rheumatoid arthritis: Follows with Dr. Pritchard of rheumatology Is to hold her Xeljanz for 1 week after surgery Has been on and off prednisone a lot for last year Monitor for need for stress dose steroids- no needed currently -Holding home NSAIDs (8) Ulcerative esophagitis: Continue PPI twice daily No acute issues (9) Insomnia: Continue home trazodone (10) Overactive bladder: Continue home oxybutynin Watch for urinary retention after Brice catheter removal --> removed this morning and has voided since that time (11) DVT prophylaxis: SCDs only given spinal surgery Disposition-continued stay on medical/surgical floor Hospital service will follow along while inpatient. Admission and Anticipated Discharge Date Admission Date: August 21, 2020 Subjective Patient evaluated this morning. Doing well. Painful overnight but improved today. Discussed pain may increase today-tomorrow post-operatively. She had prior surgery and agrees that is how prior one went. BP improved. No fever, chills, chest pain, shortness of breath, abdominal pain, nausea or vomiting. Passing gas but no BM yet. Brice discontinued this morning but has not yet voided. Review of Systems Review of Systems: All systems reviewed & are unremarkable except as noted in HPI & below Physical Exam Constitutional: WD/WN, vitals as above Eyes: + anicteric sclerae ENMT: external ear and nose normal, oropharynx normal Neck: trachea midline, no thyromegaly Respiratory: normal respiratory effort, lungs clear to auscultation Cardiovascular: RRR, no murmur, no edema Chest (Breasts): Chest: normal inspection of chest Gastrointestinal (Abdomen): normal bowel sounds, soft, nontender, no hepatosplenomegaly Musculoskeletal: Extremities: extremities normal to inspection; no cyanosis and no clubbing Skin: no rashes, warm and dry Neurologic: moves all extremities and awake; no focal motor deficits Psychiatric: A+Ox3, euthymic affect Lymphatic: no lymphedema Results & Data Results & Data ([facility]) Vital Signs (Past 12 Hours) Vital Signs Temp Pulse Resp BP Pulse Ox 08/22/20 07:15 37.2 C 72 16 157/67 H 94 08/22/20 03:07 36.8 C 70 18 164/72 H 93 08/21/20 22:57 37.2 C 70 18 167/77 H 93 08/21/20 20:13 37.3 C 75 18 177/82 H 94 Laboratory Results 08/22/20 08/22/20 08/21/20 Range/Units 05:29 05:29 20:40 WBC 9.15 (4.8-10.8) K/uL RBC 2.93 L (4.2-5.4) M/uL Hgb 9.0 L (12.0-16.0) g/dL Hct 26.0 L (37-47) % MCV 88.7 (80-100) fL MCH 30.7 (25-34) pg MCHC 34.6 (32-36) g/dL RDW Std Deviation 44.9 (36.4-46.3) fL RDW Coeff of Dolores 13.7 (11.5-14.5) % Plt Count 139 (130-400) K/uL MPV 10.7 H (7.4-10.4) fL Immature Gran % (Auto) 0.2 % Neut % (Auto) 78.9 % Lymph % (Auto) 11.9 % [place] % (Auto) 9.0 % Eos % (Auto) 0.0 % Baso % (Auto) 0.0 % Neut # (Auto) 7.22 H (1.4-6.5) K/uL Lymph # (Auto) 1.09 L (1.2-3.4) K/uL [place] # (Auto) 0.82 H (0.11-0.59) K/uL Eos # (Auto) 0.00 (0-0.5) K/uL Baso # (Auto) 0.00 (0-0.2) K/uL Immature Gran # (Auto) 0.02 (0.00-0.02) K/uL Sodium 135 L (136-145) mmol/L Potassium 4.4 (3.5-5.1) mmol/L Chloride 102 (98-107) mmol/L Carbon Dioxide 29 (21-32) mmol/L Anion Gap 4.0 (3-11) BUN 17 (7-18) mg/dl Creatinine 0.86 (0.6-1.2) mg/dl Est Cr Clr Drug Dosing 60.9 ml/min Est GFR ( Amer) 79.9 ml/min Est GFR (Non-Af Amer) 68.9 ml/min BUN/Creatinine Ratio 19.5 (10-20) Glucose 135 H (70-99) mg/dl POC Glucose 190 H (70-99) mg/dl Calcium 9.1 (8.5-10.1) mg/dl Blood Type Antibody Screen 08/21/20 08/21/20 08/21/20 Range/Units 17:23 14:21 11:57 WBC (4.8-10.8) K/uL RBC (4.2-5.4) M/uL Hgb (12.0-16.0) g/dL Hct (37-47) % MCV (80-100) fL MCH (25-34) pg MCHC (32-36) g/dL RDW Std Deviation (36.4-46.3) fL RDW Coeff of Dolores (11.5-14.5) % Plt Count (130-400) K/uL MPV (7.4-10.4) fL Immature Gran % (Auto) % Neut % (Auto) % Lymph % (Auto) % [place] % (Auto) % Eos % (Auto) % Baso % (Auto) % Neut # (Auto) (1.4-6.5) K/uL Lymph # (Auto) (1.2-3.4) K/uL [place] # (Auto) (0.11-0.59) K/uL Eos # (Auto) (0-0.5) K/uL Baso # (Auto) (0-0.2) K/uL Immature Gran # (Auto) (0.00-0.02) K/uL Sodium (136-145) mmol/L Potassium (3.5-5.1) mmol/L Chloride (98-107) mmol/L Carbon Dioxide (21-32) mmol/L Anion Gap (3-11) BUN (7-18) mg/dl Creatinine (0.6-1.2) mg/dl Est Cr Clr Drug Dosing ml/min Est GFR ( Amer) ml/min Est GFR (Non-Af Amer) ml/min BUN/Creatinine Ratio (10-20) Glucose (70-99) mg/dl POC Glucose 236 H 196 H 191 H (70-99) mg/dl Calcium (8.5-10.1) mg/dl Blood Type Antibody Screen 08/21/20 08/21/20 Range/Units 07:41 07:35 WBC (4.8-10.8) K/uL RBC (4.2-5.4) M/uL Hgb (12.0-16.0) g/dL Hct (37-47) % MCV (80-100) fL MCH (25-34) pg MCHC (32-36) g/dL RDW Std Deviation (36.4-46.3) fL RDW Coeff of Dolores (11.5-14.5) % Plt Count (130-400) K/uL MPV (7.4-10.4) fL Immature Gran % (Auto) % Neut % (Auto) % Lymph % (Auto) % [place] % (Auto) % Eos % (Auto) % Baso % (Auto) % Neut # (Auto) (1.4-6.5) K/uL Lymph # (Auto) (1.2-3.4) K/uL [place] # (Auto) (0.11-0.59) K/uL Eos # (Auto) (0-0.5) K/uL Baso # (Auto) (0-0.2) K/uL Immature Gran # (Auto) (0.00-0.02) K/uL Sodium (136-145) mmol/L Potassium (3.5-5.1) mmol/L Chloride (98-107) mmol/L Carbon Dioxide (21-32) mmol/L Anion Gap (3-11) BUN (7-18) mg/dl Creatinine (0.6-1.2) mg/dl Est Cr Clr Drug Dosing ml/min Est GFR ( Amer) ml/min Est GFR (Non-Af Amer) ml/min BUN/Creatinine Ratio (10-20) Glucose (70-99) mg/dl POC Glucose 111 H (70-99) mg/dl Calcium (8.5-10.1) mg/dl Blood Type AB Negative Antibody Screen NEGATIVE PG Care Time/CCT Total # of Minutes Spent Total Time Spent with Patient: Total time spent is greater than 50% in coordination of care (as documented) at patient's floor/unit and/or counseling patient: Coding Level of Care Code 93812 Subseq Hosp Care Lvl 2 Diagnoses Neurogenic claudication due to lumbar spinal stenosis M48.062 Benign essential hypertension I10 Chronic pain G89.29 Controlled type 2 diabetes mellitus E11.9 COPD with asthma J44.9 Osteopenia M85.80 Rheumatoid arthritis M06.9 Ulcerative esophagitis K22.10 Insomnia G47.00 Overactive bladder N32.81 DVT prophylaxis Z29.9
[2020-08-22] MEDS: POTASSIUM CHLORIDE 10 MEQ TABCR PO SCH ×2 (08:22→19:25)
[2020-08-22] MEDS: OXYBUTYNIN CHLORIDE 5 MG TAB PO SCH (08:22)
[2020-08-22] MEDS: OMEGA-3 (PURIFIED FISH OIL) 1 GM CAP PO SCH (08:22)
[2020-08-22] MEDS: CHOLECALCIFEROL 1,000 UNITS 25 MCG TAB PO SCH (08:23)
[2020-08-22] MEDS: MULTIVITAMIN TAB PO SCH (08:23)
[2020-08-22] MEDS: METOPROLOL TARTRATE 25 MG TAB PO SCH ×2 (08:23→19:25)
[2020-08-22] MEDS: hydroCHLOROthiazide 25 MG TAB PO SCH (08:23)
[2020-08-22] MEDS: DULoxetine HCL 60 MG CAP PO SCH ×2 (08:23→19:25)
[2020-08-22] MEDS: FLUTICASONE PROPIONATE NA SPR 16 GM BTL NAE SCH (08:24)
[2020-08-22] MEDS: LOSARTAN POTASSIUM 25 MG TAB PO SCH (08:24)
[2020-08-22] MEDS: PANTOprazole 40 MG TAB PO SCH ×2 (08:24→19:25)
[2020-08-22] MEDS: UMECLIDINIUM/VILANTEROL 62.5/25MCG 7 PUFFS/INHALER INH SCH (08:25)
[2020-08-22] MEDS: FLUTICASONE FUROATE 100MCG 14 PUFFS/INHALER INH SCH (08:25)
[2020-08-22] MEDS: INSULIN ASPART 100 UNITS/ML 3 ML PEN SC SCH ×4 (08:34→21:20)
[2020-08-22] MEDS ORDERED: TOFACITINIB 11 MG PO SCH (09:00)
--- NOTE | 2020-08-22 10:16 | Orthopedic Progress Note ---
Date of Service August 22, 2020 Assessment & Plan (1) Neurogenic claudication due to lumbar spinal stenosis: Admission and Anticipated Discharge Date Admission Date: August 21, 2020 We will continue physical therapy monitor JESSICA output hopefully discharge home later after this week. Subjective Back pain is well controlled leg symptoms improved Physical Exam Physical Exam: Patient is in the chair at the bedside. Has good strength testing. Peers comfortable. Results & Data ([facility]) Vital Signs (Past 12 Hours) Vital Signs Temp Pulse Resp BP Pulse Ox 08/22/20 07:15 37.2 C 72 16 157/67 H 94 08/22/20 03:07 36.8 C 70 18 164/72 H 93 08/21/20 22:57 37.2 C 70 18 167/77 H 93
[2020-08-22] MEDS: DOCUSATE SODIUM/SENNA 50/8.6MG TAB PO SCH (19:25)
[2020-08-23] MEDS: POLYETHYLENE (MIRALAX) 17 GM PACK PO SCH ×4 (05:16→23:38)
[2020-08-23] MEDS: oxyCODONE HCL IR 5 MG TAB (IMMEDIATE RELEASE) PO PRN ×2 (05:17→15:46)
[2020-08-23 06:16] LABS: Hematocrit (blood only) 27.3 % (37-47); Hemoglobin 9.2 g/dL (12.0-16.0); Mean Corpuscular Hemoglobin 30.1 pg (25-34); Mean Corpuscular Hgb Conc 33.7 g/dL (32-36); Mean Corpuscular Volume 89.2 fL (80-100); Mean Platelet Volume 10.5 fL (7.4-10.4); Platelet Count 144 K/uL (130-400); Red Blood Count 3.06 M/uL (4.2-5.4); White Blood Count 7.61 K/uL (4.8-10.8)
[2020-08-23 06:52] LABS: BUN Creatinine Ratio 21.5 (10-20); Calcium 9.2 mg/dl (8.5-10.1); Est GFR (African American) 91.3 ml/min; Est GFR (Non-African American) 78.8 ml/min; Potassium 3.9 mmol/L (3.5-5.1)
[2020-08-23] MEDS ORDERED: bisacodyL 10 MG SUPP PR PRN (08:00)
--- NOTE | 2020-08-23 08:17 | Orthopedic Progress Note ---
Date of Service August 23, 2020 Assessment & Plan (1) Neurogenic claudication due to lumbar spinal stenosis: Kari is postoperative day two hardware removal L4-S1, decompression L2-4 and instrumented fusion L2-S1. Will continue with physical therapy today. Maintain JESSICA drain. DVT prophylaxis is in the form of teds and SCDs. Continue with aggressive bowel regimen. Anticipate discharge home tomorrow Admission and Anticipated Discharge Date Admission Date: August 21, 2020 Supervising Physician Co-Signing Physician Notes Dr. Joe Pennington Subjective Patient is postoperative day two heart removal of L4-S1, decompression L2-4 and instrumented fusion L2-S1. She is doing well. Denies radicular leg pain. Compl ains of back pain. H&H are 9.2 and 27.3 respectively. Yesterday in physical therapy ambling roughly 120 feet. JESSICA drain output last shift was 45 cc. She is passing flatus but no bowel movement. Review of Systems Review of Systems: All systems reviewed & are unremarkable except as noted in HPI & below Physical Exam Physical Exam: Alert and oriented x3. No acute distress Lumbar dressing clean dry and intact Calves are soft nontender bilaterally Motor testing is intact bilateral lower extremities Constitutional: WD/WN, vitals as above Eyes: normal visual farfan by confrontation ENMT: external ear and nose normal, oropharynx normal Neck: trachea midline Respiratory: normal respiratory effort Cardiovascular: Extremities: normal capillary refill Chest (Breasts): Chest: normal inspection of chest Gastrointestinal (Abdomen): Inspection/Auscultation: abdomen normal to inspection Musculoskeletal: no cyanosis or clubbing, extremities motor strength 5/5 Extremities: extremities normal to inspection and strength 5/5 throughout Skin: no rashes, warm and dry Neurologic: normal touch/pain/proprioception and moves all extremities Psychiatric: A+Ox3, euthymic affect Results & Data ([facility]) Vital Signs (Past 12 Hours) Vital Signs Temp Pulse Resp BP BP Pulse Ox 08/23/20 07:00 36.8 C 71 16 148/73 H 93 08/22/20 23:31 37.4 C 88 16 168/94 H 90
--- NOTE | 2020-08-23 08:35 | Hospitalist Progress Note ---
Date of Service August 23, 2020 Assessment & Plan (1) Neurogenic claudication due to lumbar spinal stenosis: POD# 2 s/p lumbar decompression fusion with removal of previous hardware on 08/21/[address] Pennington Pre-op h/h 12.3/36.1 EBL 300cc. JESSICA output 425cc + 115cc Post-op H/h 11/18 -- acute blood loss anemia from surgery as well as dilutional from IVF which were continued through this morning h/h improved to 9.2/27.3 Na 130 likely from steroids but will check TSH given constipation -- wnl at 1.2 PT/OT/pain management/bowel regimen per primary service Labs in AM Plans for d/c later in the week (2) Benign essential hypertension: Blood pressures quite elevated postoperatively requiring IV labetalol in the PACU Given losartan 25mg x 1 last evening and continued her home HCTZ, losartan and metoprolol BID BP controlled currently 150/62 in setting of pain Hydralazine prn (3) Chronic pain: Continue home duloxetine 60 mg p.o. twice daily Pain control for back surgery as above (4) Controlled type 2 diabetes mellitus: With some hyperglycemia here and may have received steroids preoperatively Latest hemoglobin A1c in 08/15/2020 was quite well controlled at 6.1% Holding home Metformin while inpatient Added on NovoLog sliding scale with correction factor of 30, range 100-140, and carb ratio of 1:15 BSGs acceptable 144-165 Continue to monitor (5) COPD with asthma: No acute issues, weaning off oxygen after surgery -- currently 93% on RA Encourage incentive spirometer Continue home Trelegy once daily and albuterol as needed (6) Osteopenia: No acute issues Continue home vitamin D (7) Rheumatoid arthritis: Follows with Dr. Pritchard of rheumatology Is to hold her Xeljanz for 1 week after surgery Has been on and off prednisone a lot for last year Monitor for need for stress dose steroids- no needed currently -Holding home NSAIDs (8) Ulcerative esophagitis: Continue PPI twice daily No acute issues (9) Insomnia: Continue home trazodone (10) Overactive bladder: Continue home oxybutynin Watch for urinary retention after Brice catheter removal --> removed and has been voiding since (11) DVT prophylaxis: SCDs only given spinal surgery Disposition-continued stay on medical/surgical floor Hospital service will chart check in am but sign off at this time. Please call with any questions/concerns. Admission and Anticipated Discharge Date Admission Date: August 21, 2020 Subjective Patient evaluated this morning. Pain controlled with ordered medications. Some fatigue but improving. She is currently up at sink washing up. Passing gas but no BM. Worked with therapy. JESSICA output decreased. No f/c/cp/sob, lightheadedness, dizziness, abdominal pain, nausea (outside of with pain medications). Questions/concerns addressed at this time. Review of Systems Review of Systems: All systems reviewed & are unremarkable except as noted in HPI & below Physical Exam Constitutional: WD/WN, vitals as above Eyes: + anicteric sclerae ENMT: external ear and nose normal, oropharynx normal Neck: trachea midline, no thyromegaly Respiratory: normal respiratory effort, lungs clear to auscultation Cardiovascular: RRR, no murmur, no edema Chest (Breasts): Chest: normal inspection of chest Gastrointestinal (Abdomen): normal bowel sounds, soft, nontender, no hepatosplenomegaly Musculoskeletal: Extremities: extremities normal to inspection; no cyanosis and no clubbing dressing to lumbar spine c/d/i. JESSICA with bloody drainage NVI pulses palpable bilaterally strength equal Skin: no rashes, warm and dry Neurologic: moves all extremities and awake; no focal motor deficits Psychiatric: A+Ox3, euthymic affect Lymphatic: no lymphedema Results & Data Results & Data ([facility]) Vital Signs (Past 12 Hours) Vital Signs Temp Pulse Resp BP BP Pulse Ox 08/23/20 07:00 36.8 C 71 16 148/73 H 93 08/22/20 23:31 37.4 C 88 16 168/94 H 90 Laboratory Results 08/23/20 08/23/20 08/23/20 Range/Units 08:07 05:40 05:40 WBC 7.61 (4.8-10.8) K/uL RBC 3.06 L (4.2-5.4) M/uL Hgb 9.2 L (12.0-16.0) g/dL Hct 27.3 L (37-47) % MCV 89.2 (80-100) fL MCH 30.1 (25-34) pg MCHC 33.7 (32-36) g/dL RDW Std Deviation 46.0 (36.4-46.3) fL RDW Coeff of Dolores 14.0 (11.5-14.5) % Plt Count 144 (130-400) K/uL MPV 10.5 H (7.4-10.4) fL Sodium 130 L (136-145) mmol/L Potassium 3.9 (3.5-5.1) mmol/L Chloride 95 L (98-107) mmol/L Carbon Dioxide 30 (21-32) mmol/L Anion Gap 5.0 (3-11) BUN 17 (7-18) mg/dl Creatinine 0.77 (0.6-1.2) mg/dl Est Cr Clr Drug Dosing 68.0 ml/min Est GFR ( Amer) 91.3 ml/min Est GFR (Non-Af Amer) 78.8 ml/min BUN/Creatinine Ratio 21.5 H (10-20) Glucose 137 H (70-99) mg/dl POC Glucose 145 H (70-99) mg/dl Calcium 9.2 (8.5-10.1) mg/dl 08/22/20 08/22/20 08/22/20 Range/Units 20:29 17:05 12:02 WBC (4.8-10.8) K/uL RBC (4.2-5.4) M/uL Hgb (12.0-16.0) g/dL Hct (37-47) % MCV (80-100) fL MCH (25-34) pg MCHC (32-36) g/dL RDW Std Deviation (36.4-46.3) fL RDW Coeff of Dolores (11.5-14.5) % Plt Count (130-400) K/uL MPV (7.4-10.4) fL Sodium (136-145) mmol/L Potassium (3.5-5.1) mmol/L Chloride (98-107) mmol/L Carbon Dioxide (21-32) mmol/L Anion Gap (3-11) BUN (7-18) mg/dl Creatinine (0.6-1.2) mg/dl Est Cr Clr Drug Dosing ml/min Est GFR ( Amer) ml/min Est GFR (Non-Af Amer) ml/min BUN/Creatinine Ratio (10-20) Glucose (70-99) mg/dl POC Glucose 160 H 150 H 165 H (70-99) mg/dl Calcium (8.5-10.1) mg/dl PG Care Time/CCT Total # of Minutes Spent Total Time Spent with Patient: Total time spent is greater than 50% in coordination of care (as documented) at patient's floor/unit and/or counseling patient: Coding Level of Care Code 37676 Subseq Hosp Care Lvl 2 Diagnoses Neurogenic claudication due to lumbar spinal stenosis M48.062 Benign essential hypertension I10 Chronic pain G89.29 Controlled type 2 diabetes mellitus E11.9 COPD with asthma J44.9 Osteopenia M85.80 Rheumatoid arthritis M06.9 Ulcerative esophagitis K22.10 Insomnia G47.00 Overactive bladder N32.81 DVT prophylaxis Z29.9
[2020-08-23] MEDS: dexAMETHasone 8 MG in SYRINGE 0 ML IV SCH (08:56)
[2020-08-23] MEDS: FLUTICASONE PROPIONATE NA SPR 16 GM BTL NAE SCH (08:56)
[2020-08-23] MEDS: FLUTICASONE FUROATE 100MCG 14 PUFFS/INHALER INH SCH (08:56)
[2020-08-23] MEDS: METOPROLOL TARTRATE 25 MG TAB PO SCH ×2 (08:58→20:41)
[2020-08-23] MEDS: UMECLIDINIUM/VILANTEROL 62.5/25MCG 7 PUFFS/INHALER INH SCH (08:58)
[2020-08-23] MEDS: PANTOprazole 40 MG TAB PO SCH ×2 (08:58→20:39)
[2020-08-23] MEDS: LOSARTAN POTASSIUM 25 MG TAB PO SCH (08:58)
[2020-08-23] MEDS: POTASSIUM CHLORIDE 10 MEQ TABCR PO SCH ×2 (08:58→20:40)
[2020-08-23] MEDS: hydroCHLOROthiazide 25 MG TAB PO SCH (08:58)
[2020-08-23] MEDS: MULTIVITAMIN TAB PO SCH (08:58)
[2020-08-23] MEDS: OXYBUTYNIN CHLORIDE 5 MG TAB PO SCH (08:58)
[2020-08-23] MEDS: DULoxetine HCL 60 MG CAP PO SCH ×2 (08:59→20:39)
[2020-08-23] MEDS: INSULIN ASPART 100 UNITS/ML 3 ML PEN SC SCH ×4 (08:59→20:42)
[2020-08-23] MEDS: CHOLECALCIFEROL 1,000 UNITS 25 MCG TAB PO SCH (08:59)
[2020-08-23] MEDS: OMEGA-3 (PURIFIED FISH OIL) 1 GM CAP PO SCH (08:59)
[2020-08-23] MEDS ORDERED: MAGNESIUM CITRATE 296 ML/BTL PO ONE ×2 (19:00→19:30)
[2020-08-23] MEDS: DOCUSATE SODIUM/SENNA 50/8.6MG TAB PO SCH (20:39)
[2020-08-24] MEDS: oxyCODONE HCL IR 5 MG TAB (IMMEDIATE RELEASE) PO PRN ×2 (04:31→12:36)
[2020-08-24] MEDS: POLYETHYLENE (MIRALAX) 17 GM PACK PO SCH (05:23)
[2020-08-24 06:27] LABS: Hematocrit (blood only) 25.5 % (37-47); Hemoglobin 8.6 g/dL (12.0-16.0); Mean Corpuscular Hemoglobin 29.8 pg (25-34); Mean Corpuscular Hgb Conc 33.7 g/dL (32-36); Mean Corpuscular Volume 88.2 fL (80-100); Mean Platelet Volume 10.5 fL (7.4-10.4); Platelet Count 183 K/uL (130-400); RDW Coefficient of Variation 13.9 % (11.5-14.5); RDW Standard Deviation 45.4 fL (36.4-46.3); Red Blood Count 2.89 M/uL (4.2-5.4); White Blood Count 7.55 K/uL (4.8-10.8)
[2020-08-24 06:57] LABS: BUN Creatinine Ratio 29.4 (10-20); Calcium 9.4 mg/dl (8.5-10.1); Creatinine Clr Calc Pharmacy 63.9 ml/min; Est GFR (African American) 84.6 ml/min; Potassium 3.9 mmol/L (3.5-5.1)
[2020-08-24] MEDS: FLUTICASONE PROPIONATE NA SPR 16 GM BTL NAE SCH (07:42)
[2020-08-24] MEDS: dexAMETHasone 8 MG in SYRINGE 0 ML IV SCH (07:43)
[2020-08-24] MEDS: FLUTICASONE FUROATE 100MCG 14 PUFFS/INHALER INH SCH (07:43)
[2020-08-24] MEDS: METOPROLOL TARTRATE 25 MG TAB PO SCH (07:43)
[2020-08-24] MEDS: UMECLIDINIUM/VILANTEROL 62.5/25MCG 7 PUFFS/INHALER INH SCH (07:43)
[2020-08-24] MEDS: POTASSIUM CHLORIDE 10 MEQ TABCR PO SCH (07:44)
[2020-08-24] MEDS: OXYBUTYNIN CHLORIDE 5 MG TAB PO SCH (07:44)
[2020-08-24] MEDS: LOSARTAN POTASSIUM 25 MG TAB PO SCH (07:44)
[2020-08-24] MEDS: CHOLECALCIFEROL 1,000 UNITS 25 MCG TAB PO SCH (07:44)
[2020-08-24] MEDS: OMEGA-3 (PURIFIED FISH OIL) 1 GM CAP PO SCH (07:44)
[2020-08-24] MEDS: hydroCHLOROthiazide 25 MG TAB PO SCH (07:44)
[2020-08-24] MEDS: DULoxetine HCL 60 MG CAP PO SCH (07:44)
[2020-08-24] MEDS: MULTIVITAMIN TAB PO SCH (07:44)
[2020-08-24] MEDS: PANTOprazole 40 MG TAB PO SCH (07:45)
[2020-08-24] MEDS ORDERED: SODIUM CHLORIDE 0.9% 500 ML IV SCH (08:15)
[2020-08-24] MEDS: INSULIN ASPART 100 UNITS/ML 3 ML PEN SC SCH ×2 (08:40→12:33)
--- NOTE | 2020-08-24 09:43 | Discharge Summary ---
Date of Service August 24, 2020 Principal Diagnosis Lumbar spinal stenosis with neurogenic claudication Discharge Data Allergies Allergy/AdvReac Type Severity Reaction Status Date / Time methotrexate AdvReac Intermediate Vomiting Verified 08/21/20 07:51 Consultations 08/21/20 13:45 Consult Hospitalist Routine Procedures Performed Operation Date: 08/21/20 09:05 Actual Procedures p L2-S1 Decompression Fusion with Insertion of Interbody L3-L4, Application of Bone Morphogenetic Protein, L4-S1 Hardware Removal, Spinal Cord Monitoring(Not Applicable) - Joe Pennington DO Ordered Studies 08/21/20 07:00 [place] lumbar spine 2-3V Routine Hospital Course (1) Neurogenic claudication due to lumbar spinal stenosis: Patient went lumbar decompression fusion tolerates well second orthopedic for possibly. Postop day 1 she was up and ambulating progressed to postop day #2 on postop day 3 pain was controlled X strength testing. JESSICA drain decreasing probably. Subsequent discharge home. Discharge orders instructions from the chart for further review. Total Time Total Time Spent Total Time Spent (In Minutes): 20 minutes Discharge Plan Discharge Items Patient Disposition: Home - Self-Care Reason For Visit: Spinal Stenosis, Lumbar Region with Neurogenic Discharge Diagnosis: Lumbar spinal stenosis with neurogenic claudication Activity: As commented below Non-emergency contact: Primary Care Provider Call non-emergency contact if: you have any medication questions Follow-up/Referrals: Asad Casiano MD [Primary Care Provider] - Diet: Regular Addtl Attending Provider Instructions: ACTIVITY RECOMMENDATIONS: SELF CARE INSTRUCTIONS AFTER THORACIC/LUMBAR FUSIONS 1. You may walk to your tolerance. It is good exercise for your legs and back. Expect some back and intermittent leg aches and pains. 2. You may perform "counter-top" level activities (make a sandwich, stefani with a project, etc.). 3. No bending or lifting of more than 10 pounds or back twisting of any nature (roll like a log when turning in bed). 4. You may ride in a car for 20-30 minutes at a time. No driving until after your first visit with your doctor. 5. Frequent changes of position and restricting sitting to 30 minutes at a time will help limit the amount of back spasms and stiffness you may experience. 6. You may discontinue the use of ambulatory aids (cane, crutches, etc.) once your strength and confidence allow. 7. You may roofing apprentice the shower and let water strike your incision when you arrive home at least once daily. Do not take a tub bath, sit in a hot tub or go into a swimming pool until after your first recheck in the office. SPECIAL CARE INSTRUCTIONS: VERY IMPORTANT TO READ AND REVIEW A. Your surgical incision has been closed with a cosmetic suture under the skin that will dissolve in about 6 weeks. In 14 days, you can use a pair of clean scissors and cut the suture that is left outside of the skin at the ends of your incision. 1. The small skin tapes can be removed 7 days after surgery if they have not fallen off by that point. 2. You may keep the wound open to air as much as possible to promote healing after post-op day number 5 unless told otherwise by your doctor. 3. If you think the wound looks like it is becoming infected (redness or worsening drainage) and/or you are experiencing fever, chill or worsening back pain and muscle spasms, contact the office so that we may evaluate you as soon as possible. B. Complications are uncommon, but please contact us if you have any signs or symptoms of: 1. wound infection (fever higher than 102.5 degrees F, redness, separation of wound, drainage, or increasing pain from the incision) 2. blood clots in legs (pain, swelling, redness and warmth in legs) 3. urinary tract infection (fever higher than 102.5 degrees F, burning upon urination or increased frequency of urination) 4. nerve problems (inability to walk on your toes or heels, numbness, loss of bowel or bladder control) 5. any other symptoms that concern you C. Please call the office at if you have any concerns or questions about your operation or recovery. D. No smoking! Smoking drastically decreases the chance of a solid fusion. E. Do not take any anti-inflammatory medications (Indocin, Advil, Motrin, Aspirin, Naprosyn, etc.) as these may inhibit the chance of a solid fusion. Tylenol is okay to take for pain. MANAGING PAIN AFTER SPINAL SURGERY 1. Narcotic medication is intended for short-term use and will be provided for surgical pain. Surgical pain usually lasts for a period of 4-6 weeks. Narcotic medication includes Percocet, Vicodin, Darvocet, Tylenol #3 or Lortab. 2. Longer-term pain is more appropriately treated with non-narcotic medication such as Tylenol ES. 3. Muscle spasm is not appropriately treated with narcotics. Muscle relaxers such as Soma, Flexeril or Skelaxin can be used along with Tylenol ES. 4. Remember that we all live with some "aches and pains". This is not unusual or uncommon after an injury or as we get older. a. Back pain is expected and may include muscle spasms for 4 to 6 weeks after surgery. The pain should gradually improve. If the pain worsens for no apparent reason, please contact the office. b. Intermittent leg pain may also be experienced and should not be concerned about unless it worsens for no apparent reason. If so, please contact the office. 5. We will provide appropriate medication within the normal guidelines of their prescribed use. We will also be very cautious and aware of potential abuse and extended duration of patients' medication needs. a. Pain medications are for your comfort and to assist with sleep and rest so that the tissue can heal. They are not provided in order to return to normal activity and should not be used through the day. To do so or worsening pain at night can result from ongoing tissue damage and development of tolerance to the prescribed medicine. 6. Please allow 2-3 days to process refills. Prescriptions will not be mailed but must be picked up at the office. FOLLOW UP VISIT: Keep your scheduled follow-up appointment. Any questions, please call the office at . Pending Studies at Discharge: No Stand-Alone Forms: My [facility] boarding pass, Smoking Cessation Medications and DC Order Prescriptions: New tramadol 50 mg tablet 50 mg PO Q6H PRN (Reason: pain, moderate) Qty: 30 RF: 0 oxycodone 5 mg tablet 5 mg PO Q6H PRN (Reason: pain, severe) Qty: 30 RF: 0 Continued albuterol sulfate 90 mcg/actuation HFA aerosol inhaler 2 puffs inhalation Q4H PRN (Reason: shortness of breath or wheezing) Qty: 18 RF: 3 metformin 1,000 mg tablet 500 mg PO BID RF: 0 potassium chloride 10 mEq tablet extended release 10 meq PO BID Qty: 180 RF: 3 metoprolol tartrate 25 mg tablet 25 mg PO BID Qty: 180 RF: 3 omeprazole 20 mg capsule,delayed release(DR/EC) 20 mg PO BID Qty: 180 RF: 3 triamcinolone acetonide 0.5 % cream 1 applic topical BID PRN (Reason: skin irritation) Qty: 15 RF: 11 duloxetine 60 mg capsule,delayed release(DR/EC) 60 mg PO BID Qty: 180 RF: 3 meloxicam 15 mg tablet 15 mg PO DAILY PRN (Reason: pain) Qty: 90 RF: 1 trazodone 50 mg tablet 50 - 100 mg PO DAILY PRN (Reason: insomnia) Qty: 180 RF: 1 hydrocodone-acetaminophen 7.5-325 mg tablet 1 tab PO QID PRN (Reason: pain) Qty: 120 RF: 0 Trelegy Ellipta 100-62.5-25 mcg blister with device 1 inh inhalation DAILY Qty: 60 RF: 2 (DME) OneTouch Ultra Blue Test Strip strip See Dose Instructions .ROUTE .MEDSUPPLY Qty: 100 RF: 3 cholecalciferol (vitamin D3) 1,000 unit capsule 1,000 units PO DAILY Qty: 90 RF: 3 (DME) lancets [OneTouch Delica Lancets] 33 gauge misc See Dose Instructions .ROUTE .MEDSUPPLY Qty: 100 RF: 3 tofacitinib 11 mg tablet extended release 24 hr 11 mg PO QAM RF: 0 fluticasone furoate 27.5 mcg/actuation spray,suspension 2 spray intranasal DAILY Qty: 47.4 RF: 3 multivitamin tablet 1 tab PO QAM RF: 0 omega-3 fatty acids [Fish Oil Concentrate] 1,000 mg capsule 1,000 mg PO QAM RF: 0 losartan 25 mg tablet 25 mg PO QAM MDD 1 RF: 0 hydrochlorothiazide 25 mg tablet 25 mg PO QAM RF: 0 oxybutynin chloride 5 mg tablet 5 mg PO QAM RF: 0 Discharge Orders: Discharge Order (Routine); Ordered 08/24/20 Ordered By: Joe Pennington Admission Data Admit Date/Time: 08/21/20 12:45 Attending Provider: Joe Pennington Admit Provider: Joe Pennington Primary Care Provider: Asad Casiano Other Providers: Anurag Duran
--- NOTE | 2020-08-24 11:17 | Hospitalist Progress Note ---
Date of Service August 24, 2020 Assessment & Plan (1) Neurogenic claudication due to lumbar spinal stenosis: POD# 2 s/p lumbar decompression fusion with removal of previous hardware on 08/21/[address] Pennington Pre-op h/h 12.3/36.1 EBL 300cc. JESSICA output 425cc + 115cc Post-op H/h 11/18 -- acute blood loss anemia from surgery as well as dilutional from IVF which were continued through this morning hgb 8.6, stable Decreased JESSICA output Na 130 likely from steroids but will check TSH given constipation -- wnl at 1.2 Repeat Na the same but did have minimal dehydration. Giving 500cc NS before she leaves after drain removed PT/OT/pain management/bowel regimen per primary service Plans for d/c later this afternoon (2) Benign essential hypertension: Blood pressures quite elevated postoperatively requiring IV labetalol in the PACU Given losartan 25mg x 1 last evening and continued her home HCTZ, losartan and metoprolol BID BP controlled currently 150/62 in setting of pain Hydralazine prn (3) Chronic pain: Continue home duloxetine 60 mg p.o. twice daily Pain control for back surgery as above (4) Controlled type 2 diabetes mellitus: With some hyperglycemia here and may have received steroids preoperatively Latest hemoglobin A1c in 08/15/2020 was quite well controlled at 6.1% Holding home Metformin while inpatient Added on NovoLog sliding scale with correction factor of 30, range 100-140, and carb ratio of 1:15 BSGs acceptable Resume metformin at discharge (5) COPD with asthma: No acute issues, weaning off oxygen after surgery -- currently 96% on RA Encouraged incentive spirometer Continue home Trelegy once daily and albuterol as needed (6) Osteopenia: No acute issues Continue home vitamin D (7) Rheumatoid arthritis: Follows with Dr. Pritchard of rheumatology Is to hold her Xeljanz for 1 week after surgery --> she is to contact them after to see if when to resume Has been on and off prednisone a lot for last year Monitor for need for stress dose steroids- no needed currently -Holding home NSAIDs (8) Ulcerative esophagitis: Continue PPI twice daily No acute issues (9) Insomnia: Continue home trazodone (10) Overactive bladder: Continue home oxybutynin Watch for urinary retention after Brice catheter removal --> removed and has been voiding since (11) DVT prophylaxis: SCDs only given spinal surgery Disposition-to be discharged this afternoon per primary service Hospitalist service signing off. Please call with any questions/concerns. Admission and Anticipated Discharge Date Admission Date: August 21, 2020 Subjective Patient evaluated this morning. Feeling well. Drain output decreased. Pain controlled Moved bowels multiple times overnight and getting a little IVF before she goes and drain removed. No fever, chills, chest pain, shortness of breath, abd pain, n/v. Questions/concerns addressed. Plans on d/c this afternoon after lunch and drain removed. Review of Systems Review of Systems: All systems reviewed & are unremarkable except as noted in HPI & below Physical Exam Constitutional: WD/WN, vitals as above Eyes: + anicteric sclerae ENMT: external ear and nose normal, oropharynx normal Neck: trachea midline, no thyromegaly Respiratory: normal respiratory effort, lungs clear to auscultation Cardiovascular: RRR, no murmur, no edema Chest (Breasts): Chest: normal inspection of chest Gastrointestinal (Abdomen): normal bowel sounds, soft, nontender, no hepatosplenomegaly Musculoskeletal: Extremities: extremities normal to inspection; no cyanosis and no clubbing surgical dressing c/d/i NVI pulses palpable bilaterally JESSICA with scant drainage calves non-tender Skin: no rashes, warm and dry Neurologic: moves all extremities and awake; no focal motor deficits Psychiatric: A+Ox3, euthymic affect Lymphatic: no lymphedema Results & Data Results & Data ([facility]) Vital Signs (Past 12 Hours) Vital Signs Temp Pulse Resp BP Pulse Ox 08/24/20 07:23 36.7 C 70 16 132/69 96 Laboratory Results 08/24/20 08/24/20 08/24/20 Range/Units 08:04 05:37 05:37 WBC 7.55 (4.8-10.8) K/uL RBC 2.89 L (4.2-5.4) M/uL Hgb 8.6 L (12.0-16.0) g/dL Hct 25.5 L (37-47) % MCV 88.2 (80-100) fL MCH 29.8 (25-34) pg MCHC 33.7 (32-36) g/dL RDW Std Deviation 45.4 (36.4-46.3) fL RDW Coeff of Dolores 13.9 (11.5-14.5) % Plt Count 183 (130-400) K/uL MPV 10.5 H (7.4-10.4) fL Sodium 130 L (136-145) mmol/L Potassium 3.9 (3.5-5.1) mmol/L Chloride 93 L (98-107) mmol/L Carbon Dioxide 30 (21-32) mmol/L Anion Gap 6.0 (3-11) BUN 24 H (7-18) mg/dl Creatinine 0.82 (0.6-1.2) mg/dl Est Cr Clr Drug Dosing 63.9 ml/min Est GFR ( Amer) 84.6 ml/min Est GFR (Non-Af Amer) 73.0 ml/min BUN/Creatinine Ratio 29.4 H (10-20) Glucose 130 H (70-99) mg/dl POC Glucose 122 H (70-99) mg/dl Calcium 9.4 (8.5-10.1) mg/dl Crossmatch 08/23/20 08/23/20 08/23/20 Range/Units 20:37 17:19 12:01 WBC (4.8-10.8) K/uL RBC (4.2-5.4) M/uL Hgb (12.0-16.0) g/dL Hct (37-47) % MCV (80-100) fL MCH (25-34) pg MCHC (32-36) g/dL RDW Std Deviation (36.4-46.3) fL RDW Coeff of Dolores (11.5-14.5) % Plt Count (130-400) K/uL MPV (7.4-10.4) fL Sodium (136-145) mmol/L Potassium (3.5-5.1) mmol/L Chloride (98-107) mmol/L Carbon Dioxide (21-32) mmol/L Anion Gap (3-11) BUN (7-18) mg/dl Creatinine (0.6-1.2) mg/dl Est Cr Clr Drug Dosing ml/min Est GFR ( Amer) ml/min Est GFR (Non-Af Amer) ml/min BUN/Creatinine Ratio (10-20) Glucose (70-99) mg/dl POC Glucose 206 H 184 H 178 H (70-99) mg/dl Calcium (8.5-10.1) mg/dl Crossmatch 08/21/20 Range/Units 07:41 WBC (4.8-10.8) K/uL RBC (4.2-5.4) M/uL Hgb (12.0-16.0) g/dL Hct (37-47) % MCV (80-100) fL MCH (25-34) pg MCHC (32-36) g/dL RDW Std Deviation (36.4-46.3) fL RDW Coeff of Dolores (11.5-14.5) % Plt Count (130-400) K/uL MPV (7.4-10.4) fL Sodium (136-145) mmol/L Potassium (3.5-5.1) mmol/L Chloride (98-107) mmol/L Carbon Dioxide (21-32) mmol/L Anion Gap (3-11) BUN (7-18) mg/dl Creatinine (0.6-1.2) mg/dl Est Cr Clr Drug Dosing ml/min Est GFR ( Amer) ml/min Est GFR (Non-Af Amer) ml/min BUN/Creatinine Ratio (10-20) Glucose (70-99) mg/dl POC Glucose (70-99) mg/dl Calcium (8.5-10.1) mg/dl Crossmatch See Detail PG Care Time/CCT Total # of Minutes Spent Total Time Spent with Patient: Total time spent is greater than 50% in coordination of care (as documented) at patient's floor/unit and/or counseling patient: Coding Level of Care Code 71977 Subseq Hosp Care Lvl 2 Diagnoses Neurogenic claudication due to lumbar spinal stenosis M48.062 Benign essential hypertension I10 Chronic pain G89.29 Controlled type 2 diabetes mellitus E11.9 COPD with asthma J44.9 Osteopenia M85.80 Rheumatoid arthritis M06.9 Ulcerative esophagitis K22.10 Insomnia G47.00 Overactive bladder N32.81 DVT prophylaxis Z29.9
== END 2020-08-24 15:04 | disposition home or self-care (01) | DRG 454 ==
LOC: ASU 07:07 → 3E 12:45